=== PATIENT | male | born 1955 | race Caucasian/White ===

== ENCOUNTER 2019-04-01 08:45 | Emergency (ER) | payer SELFPAY ==
[2019-04-01 09:22] LABS: ABSOLUTE LYMPHOCYTES (AUTO) 0.8 10^3/uL (0.5-4.7); ABSOLUTE NEUT (AUTO) 11.6 10^3/uL (1.7-8.2); BASOPHILS % (AUTO) 0.3 % (0-2); EOSINOPHILS % (AUTO) 0.1 % (0-6); HEMATOCRIT 50.7 % (37.9-51.0); HEMOGLOBIN 16.5 g/dL (13.5-17.0); LYMPHOCYTES % (AUTO) 6.2 % (13-45); MEAN CORPUSCULAR HEMOGLOBIN 29.1 pg (27.0-33.4); MEAN CORPUSCULAR HGB CONC 32.6 g/dL (32.0-36.0); MEAN CORPUSCULAR VOLUME 89 fl (80-97); MONOCYTES % (AUTO) 7.5 % (3-13); PLATELET COUNT 227 10^3/uL (150-450); RED BLOOD COUNT 5.67 10^6/uL (4.35-5.55); SEGMENTED NEUTROPHILS % (AUTO) 85.9 % (42-78); TOTAL CELLS COUNTED % (AUTO) 100 %; WHITE BLOOD COUNT 13.5 10^3/uL (4.0-10.5)
[2019-04-01 09:30] LABS: INTERNATIONAL RATION (INR) 1.24; PROTHROMBIN TIME 15.7 SEC (11.4-15.4)
[2019-04-01 09:38] LABS: VENOUS BLOOD BASE EXCESS 2.9 mmol/L; VENOUS BLOOD PCO2 39.8 mmHg (35-63); VENOUS BLOOD PH 7.45 (7.30-7.42)
[2019-04-01 09:46] LABS: ALANINE AMINOTRANSFERASE 39 U/L (21-72); ALBUMIN 4.6 g/dL (3.5-5.0); ALKALINE PHOSPHATASE 122 U/L (38-126); ANION GAP 16 (5-19); ASPARTATE AMINO TRANSFERASE 48 U/L (17-59); BILIRUBIN,DIRECT 0.5 mg/dL (0.0-0.4); BILIRUBIN,TOTAL 2.2 mg/dL (0.2-1.3); BLOOD UREA NITROGEN 36 mg/dL (7-20); CALCIUM 9.7 mg/dL (8.4-10.2); CARBON DIOXIDE 28 mmol/L (22-30); CHLORIDE 98 mmol/L (98-107); GLUCOSE 208 mg/dL (75-110); LIPASE 111.1 U/L (23-300); POTASSIUM 3.7 mmol/L (3.6-5.0); SODIUM 142.1 mmol/L (137-145); TOTAL PROTEIN 8.2 g/dL (6.3-8.2)
[2019-04-01] MEDS ORDERED: NORMAL SALINE 1000 ML 1,000 ML IV ONE (09:48)
--- NOTE | 2019-04-01 10:28 | ER Document Report ---
ED General - General Chief Complaint: Breathing Difficulty Stated Complaint: RIGHT FLANK PAIN Time Seen by Provider: 04/01/19 09:46 Notes: Patient brought in by EMS because he has pain in his left lower anterolateral ribs. He says he "passed out" for a few seconds and fell about 6 days ago in the parking lot at a local store. He believes he itt his left lower ribs on the concrete surface. He was able to get up and ride his scooter home. He is an insulin-dependent diabetic and thought his blood sugar may have been low so he ate a piece of candy. However, he is continued to have pain in that region of the ribs. He had a second fall in his house 3 days ago as he attempted to get up from a chair to go to the bathroom. He did not lose consciousness on this occasion, 3 days ago. Patient says he is vomited a couple times during the 6 days, the last time he vomited the Saturday. Patient normally ambulates in his house without any walker or assistance. He lives alone. He rides a scooter to the store and back. TRAVEL OUTSIDE OF THE [place] IN LAST 30 DAYS: No - Related Data Allergies/Adverse Reactions: No Known Allergies Allergy (Unverified 04/01/19 10:52) Past Medical History - Social History Smoking Status: Unknown if Ever Smoked Family History: Reviewed & Not Pertinent - Past Medical History Cardiac Medical History: Reports: Hx Atrial Fibrillation - told he had irregular hearteat, ?Afib? --on Plavix Endocrine Medical History: Reports: Hx Diabetes Mellitus Type 1 Past Surgical History: Reports: Hx Orthopedic Surgery - left ankle Fx; amputation left big toe Review of Systems - Review of Systems Constitutional: denies: Fever EENT: No symptoms reported Respiratory: No symptoms reported. denies: Short of breath Gastrointestinal: Abdominal pain - right flank pain, Vomiting - two times. denies: Diarrhea, Constipation Musculoskeletal: No symptoms reported Skin: No symptoms reported -: Yes All other systems reviewed and negative Physical Exam - Vital signs Vitals: Temp 98.5 F 04/01/19 08:50 Interpretation: Tachycardic, Hypoxic - Upper 80s on room air.. No: Hypotensive Notes: PHYSICAL EXAMINATION: GENERAL: Well-appearing, in no acute distress. HEAD: Atraumatic, normocephalic. EYES: Pupils equal round and reactive to light, extraocular movements intact. ENT: oropharynx clear without exudates. Moist mucous membranes. NECK: Normal range of motion, supple. LUNGS: Breath sounds clear and equal bilaterally. Patient's lower left anterior ribs are extremely tender to touch and press. No subcutaneous air felt. HEART: Irregularly irregular rate and rhythm without murmurs. ABDOMEN: Soft, nontender. No guarding or rebound. No masses. BACK: No tenderness throughout entire back. EXTREMITIES: Normal range of motion without pain. Scars from old surgery of the left ankle where patient had trauma. Left great toe surgically absent. Second toe on that foot is somewhat swollen and pink and could be a source of infection. NEUROLOGICAL: Normal speech, gait not attempted. Normal sensory, motor, and reflex exams. Awake, alert, and oriented x3. Cranial nerves normal. PSYCH: Normal mood, normal affect. SKIN: Warm, dry, no rashes. Course - Re-evaluation Re-evalutation: 04/01/19 14:12 Have spoken to [facility] and they have accepted the patient, is the accepting doctor. However, they may not have beds available for at least 24 hours. I will call other facilities to see if they have any more likely bed assignment sooner. Patient's heart rate is crept up somewhat and now is in the low 100s. I would recommend another half a dose of Lopressor IV 2.5 mg. Patient's lactate level was elevated initially at 2.5, but repeat just a short time ago it was only 1.4. I repeated his troponin as well. No results yet. 04/01/19 18:04 I made calls to [facility] to see if they may have bed availability. They took the patient's name and a couple hours later called and said they do have a bed for him. During the patient's time here in the emergency department, I did send him for CT scan of the chest without contrast and CT scan of the abdomen and pelvis without contrast. Results showed fractures of the fourth, fifth, sixth and seventh ribs with some consolidation in the left lower lung which was read as a pulmonary contusion. I called back to the transfer center and made them aware of this new finding, although I do not think it will change anything as far as his being able to be transferred. The injury causing these findings happened 6 days ago. He is being covered with antibiotics IV Rocephin here in the department. 04/01/19 18:08 Recent second troponin came back at almost the same value was the first troponin . 04/01/19 18:16 Just received word that there is a bed available at [facility]. Patient lives in the [facility] and his preference is to be admitted to that [facility] for that reason, if at all possible. Decision has been made to cancel the transfer to [facility] which may not get here until midnight or later and transfer the patient to [facility], closer to the patient's home, and to have a bed available at this time. - Vital Signs Vital signs: Temp Pulse Resp BP Pulse Ox 98 F 20 120/91 H 95 04/01/19 20:09 04/01/19 20:11 04/01/19 20:11 04/01/19 20:09 - Laboratory Result Diagrams: 04/01/19 19:55 04/01/19 09:08 Laboratory results interpreted by me: 04/01/19 04/01/19 04/01/19 08:53 09:08 09:08 WBC 13.5 H RBC 5.67 H RDW 16.0 H Seg Neutrophils % 85.9 H Lymphocytes % 6.2 L Absolute Neutrophils 11.6 H PT APTT VBG pH BUN 36 H Est GFR (Non-Af Amer) 59 L Glucose 208 H POC Glucose 191 H Lactic Acid Total Bilirubin 2.2 H Direct Bilirubin 0.5 H NT-Pro-B Natriuret Pep Urine Protein Urine Glucose (UA) Urine Ketones Urine Urobilinogen 04/01/19 04/01/19 04/01/19 09:08 09:08 09:08 WBC RBC RDW Seg Neutrophils % Lymphocytes % Absolute Neutrophils PT 15.7 H APTT VBG pH BUN Est GFR (Non-Af Amer) Glucose POC Glucose Lactic Acid 2.5 H Total Bilirubin Direct Bilirubin NT-Pro-B Natriuret Pep 3950 H Urine Protein Urine Glucose (UA) Urine Ketones Urine Urobilinogen 04/01/19 04/01/19 04/01/19 09:16 11:00 19:55 WBC 10.8 H RBC RDW 16.0 H Seg Neutrophils % Lymphocytes % 11.2 L Absolute Neutrophils 8.4 H PT APTT VBG pH 7.45 H BUN Est GFR (Non-Af Amer) Glucose POC Glucose Lactic Acid Total Bilirubin Direct Bilirubin NT-Pro-B Natriuret Pep Urine Protein >=500 H Urine Glucose (UA) 150 H Urine Ketones TRACE H Urine Urobilinogen 2.0 H 04/01/19 19:55 WBC RBC RDW Seg Neutrophils % Lymphocytes % Absolute Neutrophils PT 15.5 H APTT 67.1 H VBG pH BUN Est GFR (Non-Af Amer) Glucose POC Glucose Lactic Acid Total Bilirubin Direct Bilirubin NT-Pro-B Natriuret Pep Urine Protein Urine Glucose (UA) Urine Ketones Urine Urobilinogen Critical Care Note - Critical Care Note Total time excluding time spent on procedures (mins): 40 Discharge - Discharge Clinical Impression: Atrial fibrillation with rapid ventricular response, Positive Troponin, Fracture, ribs Condition: Stable Disposition: [facility]
[2019-04-01] MEDS ORDERED: METOPROLOL TARTRATE PF/INJ 5 MG/5 ML SDV IV ONE ×2 (10:29→14:11)
--- NOTE | 2019-04-01 10:32 | EKG REPORT ---
SEVERITY:- ABNORMAL ECG - ATRIAL FIBRILLATION, V-RATE 75-149 LEFT AXIS DEVIATION REPOL ABNRM SUGGESTS ISCHEMIA, DIFFUSE LEADS RIGHT BUNDLE BRANCH BLOCK : Confirmed by: Lacie Ball MD 01-Apr-2019 10:32:10
--- NOTE | 2019-04-01 10:42 | RADIOLOGY REPORT (SQ) ---
EXAM DESCRIPTION: CHEST SINGLE VIEW COMPLETED DATE/TIME: 04/01/2019 10:25 am REASON FOR STUDY: Left lower rib pain after falling 6 days ago COMPARISON: None. EXAM PARAMETERS: NUMBER OF VIEWS: One view. TECHNIQUE: Single frontal radiographic view of the chest acquired. RADIATION DOSE: NA LIMITATIONS: None. FINDINGS: LUNGS AND PLEURA: Low lung volumes with ill-defined retrocardiac opacity. No large effusi on. No pneumothorax. MEDIASTINUM AND HILAR STRUCTURES: No masses. Contour normal. HEART AND VASCULAR STRUCTURES: Enlarged cardiac silhouette. BONES: No displaced fracture. HARDWARE: None in the chest. OTHER: No other significant finding. IMPRESSION: Low lung volumes with ill-defined left retrocardiac opacity possibly atelectasis, contus ion or infection. No displaced fracture. No pneumothorax TECHNICAL DOCUMENTATION: JOB ID: [id number] [employer]- All Rights Reserved Reading location - IP/workstation name: [email or web address]
[2019-04-01 10:45] LABS: FREE T4 (FREE THYROXINE) 1.89 ng/dL (0.78-2.19)
[2019-04-01 10:59] LABS: THYROID STIMULATING HORMONE 1.19 uIU/mL (0.47-4.68)
[2019-04-01 11:16] LABS: APPEARANCE,URINE SLIGHTLY-CLOUDY; BILIRUBIN,URINE NEGATIVE (NEGATIVE); COLOR,URINE AMBER; GLUCOSE, URINE 150 mg/dL (NEGATIVE); KETONES,URINE TRACE mg/dL (NEGATIVE); LEUKOCYTE ESTERASE,URINE NEGATIVE (NEGATIVE); NITRITE,URINE NEGATIVE (NEGATIVE); PROTEIN,URINE >=500 mg/dL (NEGATIVE); URINE SPECIFIC GRAVITY 1.027
[2019-04-01] MEDS ORDERED: CEFTRIAXONE 1 GM/D5W RTU 1 GM/50 ML RTUPB IV ONE (11:58)
[2019-04-01] MEDS ORDERED: HEPARIN SOD (PORCINE) 1,000 UNIT/ML 10 ML VIAL IV ONE (15:54)
[2019-04-01] MEDS ORDERED: HEPARIN SODIUM,PORCINE/D5W 25,000 UNIT/250 ML RTUINJ IV PRN (16:02)
--- NOTE | 2019-04-01 16:28 | RADIOLOGY REPORT (SQ) ---
EXAM DESCRIPTION: CT CHEST WITHOUT COMPLETED DATE/TIME: 04/01/2019 4:08 pm REASON FOR STUDY: Pain lower left ribs after fall last week COMPARISON: None. TECHNIQUE: CT scan performed of the chest without intravenous contrast. Images reviewed with lung, soft tissue and bone windows. Reconstructed coronal and sagittal MPR images reviewed. All images st ored on PACS. All CT scanners at this facility use dose modulation, iterative reconstruction, and/or weight based d osing when appropriate to reduce radiation dose to as low as reasonably achievable (ALARA). [facility]: Dose Right [facility]: CareDose [facility]: Dose Right [facility]: Teradose 4D [facility]: [employer] RADIATION DOSE: mGy. LIMITATIONS: No technical limitations. FINDINGS: LUNGS AND PLEURA: Subsegmental consolidation in the left lower lobe. Trace left pleural f luid. HILAR AND MEDIASTINAL STRUCTURES: No identified masses or abnormal nodes. No obvious aneurysm. HEART AND VASCULAR STRUCTURES: No aneurysm. No pericardial effusion. UPPER ABDOMEN: No significant findings. Limited exam. THYROID AND OTHER SOFT TISSUES: No masses. No adenopathy. BONES: Fractures of the left 4th through 7th anterolateral ribs. HARDWARE: None in the chest. OTHER: No other significant findings. IMPRESSION: Recent rib fractures. Pulmonary contusion left lower lobe. TECHNICAL DOCUMENTATION: JOB ID: [id number] Quality ID # [id number]: Final reports with documentation of one or more dose reduction techniques (e.g., Au tomated exposure control, adjustment of the mA and/or kV according to patient size, use of iterative reconstruction technique) 2010 [employer]- All Rights Reserved Reading location - IP/workstation name: [email or web address]
--- NOTE | 2019-04-01 16:31 | RADIOLOGY REPORT (SQ) ---
EXAM DESCRIPTION: CT ABD/PELVIS NO ORAL OR IV COMPLETED DATE/TIME: 04/01/2019 4:08 pm REASON FOR STUDY: History of fall with pain left upper quadrant COMPARISON: None. TECHNIQUE: CT scan of the abdomen and pelvis performed without intravenous or oral contrast. Images reviewed with lung, soft tissue, and bone windows. Reconstructed coronal and sagittal MPR images revi ewed. All images stored on PACS. All CT scanners at this facility use dose modulation, iterative reconstruction, and/or weight based d osing when appropriate to reduce radiation dose to as low as reasonably achievable (ALARA). [facility]: Dose Right [facility]: CareDose [facility]: Dose Right [facility]: Teradose 4D [facility]: [employer] RADIATION DOSE: CT Rad equipment meets quality standard of care and radiation dose reduction techniq ues were employed. CTDIvol: 19.9 mGy. DLP: 1468 mGy-cm.mGy. LIMITATIONS: None. FINDINGS: LOWER CHEST: See separate report of the CT of the chest. NON-CONTRASTED LIVER, SPLEEN, ADRENALS: 2 cm right adrenal nodule measuring 18 HU. PANCREAS: Occasional calcifications consistent with prior pancreatitis. GALLBLADDER: No identified stones by CT criteria. No inflammatory changes to suggest cholecystitis. RIGHT KIDNEY AND URETER: No suspicious masses. Assessment limited by lack of IV contrast. No signif icant calcifications. No hydronephrosis or hydroureter. LEFT KIDNEY AND URETER: No suspicious masses. Assessment limited by lack of IV contrast. No signifi cant calcifications. No hydronephrosis or hydroureter. AORTA AND RETROPERITONEUM: No aneurysm. No retroperitoneal masses or adenopathy. BOWEL AND PERITONEAL CAVITY: No obvious masses or inflammatory changes. No free fluid. APPENDIX: Normal. PELVIS, BLADDER, AND ABDOMINAL WALL:Fat containing anterior abdominal wall hernia. BONES: Nothing acute. OTHER: No other significant finding. IMPRESSION: No acute findings in the abdomen. Incidental right adrenal nodule. COMMENT: Quality ID # 436: Final reports with documentation of one or more dose reduction techniques (e.g., Automated exposure control, adjustment of the mA and/or kV according to patient size, use of iterative reconstruction technique) TECHNICAL DOCUMENTATION: JOB ID: [id number] [employer]- All Rights Reserved Reading location - IP/workstation name: [email or web address]
[2019-04-01] MEDS ORDERED: DILTIAZEM HCL/D5W 125 MG/125 ML RTUINJ IV PRN (19:36)
[2019-04-01] MEDS ORDERED: DILTIAZEM HCL INJ 25 MG/5 ML VIAL IV ONE (19:36)
[2019-04-01 20:05] LABS: ABSOLUTE BASOPHILS # (AUTO) 0.1 10^3/uL (0.0-0.2); ABSOLUTE EOSINOPHILS # (AUTO) 0.1 10^3/uL (0.0-0.6); ABSOLUTE LYMPHOCYTES (AUTO) 1.2 10^3/uL (0.5-4.7); ABSOLUTE MONOCYTES (AUTO) 1.1 10^3/uL (0.1-1.4); ABSOLUTE NEUT (AUTO) 8.4 10^3/uL (1.7-8.2); BASOPHILS % (AUTO) 0.5 % (0-2); EOSINOPHILS % (AUTO) 1.1 % (0-6); HEMATOCRIT 45.9 % (37.9-51.0); HEMOGLOBIN 15.4 g/dL (13.5-17.0); LYMPHOCYTES % (AUTO) 11.2 % (13-45); MEAN CORPUSCULAR HEMOGLOBIN 29.8 pg (27.0-33.4); MEAN CORPUSCULAR HGB CONC 33.5 g/dL (32.0-36.0); MEAN CORPUSCULAR VOLUME 89 fl (80-97); MONOCYTES % (AUTO) 9.8 % (3-13); PLATELET COUNT 199 10^3/uL (150-450); RED BLOOD COUNT 5.16 10^6/uL (4.35-5.55); SEGMENTED NEUTROPHILS % (AUTO) 77.4 % (42-78); TOTAL CELLS COUNTED % (AUTO) 100 %; WHITE BLOOD COUNT 10.8 10^3/uL (4.0-10.5)
[2019-04-01 20:13] LABS: INTERNATIONAL RATION (INR) 1.23; PROTHROMBIN TIME 15.5 SEC (11.4-15.4)
[2019-04-01 20:15] LABS: PARTIAL THROMBOPLASTIN TIME 67.1 SEC (23.5-35.8)
[2019-04-01 20:27] VITALS: BP 120/91
--- NOTE | 2019-04-01 21:54 | ER Document Report ---
Doctor's Note Notes: 04/01/19 21:53 Violent was at the bedside at 2014. Patient's tachycardia had slowed down to about a 10 2-1 05 rate. The Cardizem had not yet been given. Transport team elected to take the Cardizem with them but not start it until they consulted with the accepting physician. The patient was stable for transport at that time.
== END 2019-04-01 20:15 | disposition short-term general hospital (02) ==
LOC: ER 08:45
DX: S22.42XA Multiple fractures of ribs, left side, initial encounter for closed fracture (principal); R10.9 Unspecified abdominal pain; R07.81 Pleurodynia; R79.89 Other specified abnormal findings of blood chemistry; W18.30XA Fall on same level, unspecified, initial encounter; Y92.481 Parking lot as the place of occurrence of the external cause; I48.91 Unspecified atrial fibrillation
CPT/HCPCS: 93005; 96376; 99285; 96361; 96375; 96365; 96366; 96367; 36415; 87040; 87086; 84439; 82962; 83690; 84443; 85025; 85610; 85730; 87077; 80053; 81001; 84484; 87186; 82803; 83605; 83880; 71045; 71250; 74176; 93010; J1644 ×2; J3490 ×3; J7030; J0696

== ENCOUNTER → 2019-07-02 | Outpatient (CLI) | payer OTHER ==
[2019-07-02 10:40] LABS: ABSOLUTE EOSINOPHILS # (AUTO) 0.1 10^3/uL (0.0-0.6); ABSOLUTE LYMPHOCYTES (AUTO) 0.8 10^3/uL (0.5-4.7); ABSOLUTE MONOCYTES (AUTO) 0.7 10^3/uL (0.1-1.4); BASOPHILS % (AUTO) 0.5 % (0-2); HEMATOCRIT 41.8 % (37.9-51.0); HEMOGLOBIN 14.1 g/dL (13.5-17.0); LYMPHOCYTES % (AUTO) 9.2 % (13-45); MEAN CORPUSCULAR HEMOGLOBIN 30.7 pg (27.0-33.4); MEAN CORPUSCULAR HGB CONC 33.8 g/dL (32.0-36.0); MEAN CORPUSCULAR VOLUME 91 fl (80-97); MONOCYTES % (AUTO) 8.1 % (3-13); PLATELET COUNT 347 10^3/uL (150-450); RED BLOOD COUNT 4.59 10^6/uL (4.35-5.55); RED CELL DISTRIBUTION WIDTH 14.9 % (11.5-14.0); SEGMENTED NEUTROPHILS % (AUTO) 81.2 % (42-78); TOTAL CELLS COUNTED % (AUTO) 100 %; WHITE BLOOD COUNT 8.6 10^3/uL (4.0-10.5)
[2019-07-02 11:12] LABS: ALBUMIN 4.2 g/dL (3.5-5.0); ALKALINE PHOSPHATASE 119 U/L (38-126); ANION GAP 10 (5-19); ASPARTATE AMINO TRANSFERASE 26 U/L (17-59); BILIRUBIN,DIRECT 0.2 mg/dL (0.0-0.4); BILIRUBIN,TOTAL 1.5 mg/dL (0.2-1.3); BLOOD UREA NITROGEN 18 mg/dL (7-20); C-REACTIVE PROTEIN 8.2 mg/L (<10.0); CALCIUM 9.3 mg/dL (8.4-10.2); CARBON DIOXIDE 33 mmol/L (22-30); CHLORIDE 98 mmol/L (98-107); GLUCOSE 182 mg/dL (75-110); POTASSIUM 3.8 mmol/L (3.6-5.0); TOTAL PROTEIN 7.9 g/dL (6.3-8.2)
[2019-07-02 11:22] LABS: ERYTHROCYTE SEDIMENTATION RATE 43 mm/hr (0-20)
== END ==
LOC: LAB 09:56
PROVIDERS: ATTEND Preventive Medicine Undersea and Hyperbaric Medicine
DX: E11.621 Type 2 diabetes mellitus with foot ulcer (principal); L97.512 Non-pressure chronic ulcer of other part of right foot with fat layer exposed; L97.522 Non-pressure chronic ulcer of other part of left foot with fat layer exposed
CPT/HCPCS: 36415; 80053; 83036; 85025; 85652; 86140

== ENCOUNTER → 2019-07-15 | Outpatient (CLI) | payer OTHER ==
--- NOTE | 2019-07-16 08:52 | XCELERA REPORT ---
[address] [address] Lower Extremity Arterial Evaluation Name: CATHERINE LEROY Age: 64 yrs Gender: Male : 1955 Patient Status: Outpatient Patient Location: Study Date: 07/15/2019 11:01 AM Procedure: A color flow and duplex scan of the lower extremity arteries was performed bilaterally with velocity and waveform anaylsis. Ankle brachial indicies performed. Reason For Study: ULCER OF RIGHT FOOT Ordering Physician: ROSLYN STARKS Performed By: Loretta Cooper Measurements and Calculations Right Left CUTTER INSPECTOR PSV 104.8 98.7 cm/sec Prox PFA PSV -95.9 -57.0 cm/sec Prox SFA PSV 73.7 39.6 cm/sec Mid SFA PSV -134.8 -59.4 cm/sec Dist SFA PSV -62.0 -40.2 cm/sec Prox Pop A PSV 55.0 36.0 cm/sec Dist Pop A PSV -143.9 cm/sec Dist KIRIT PSV 13.8 13.2 cm/sec Dist GOVERNMENT RELATIONS MANAGER PSV 22.3 23.6 cm/sec Dist Jennifer A 23.6 cm/sec PSV David Pedis PSV 14.3 14.1 cm/sec Right Side Arterial Evaluation Normal velocity and biphasic waveforms, moderate spectral broadening, noted from the Common Femoral artery to the Femoral artery . Monophasic with low velocity, spectral broadening , from the Popliteal to infrageniculate arteries. Almost trickle flow in the Anterior and Posterior tibial arteries. Additionally, stenosis in the Popliteal is seen on aguayo scale and wall calcification in the infrageniculate vessels. Ankle Brachial index 0.64. Left Side Arterial Evaluation Normal velocity and biphasic waveforms, moderate spectral broadening, noted from the Common Femoral artery to the proximal Femoral artery . Monophasic with low velocity, spectral broadening , from the Popliteal to infrageniculate arteries. Almost trickle flow in the Anterior and Posterior tibial arteries. Wall calcification in the infrageniculate vessels. Ankle Brachial index 0.78. Interpretation Summary Severe hemodynamically significant lesions in the bilateral lower extremities, on duplex imaging, at rest. Duplex findings show complex, sequential disease,inflow as well as Femero Popliteal. Calcification in vessels granger. Focal stenosis in night Popliteal. Findings are compatible with threat of tissue loss. DEBBIE's indicate moderate obstruction, this is discordant with the duplex findings. : ROSLYN STARKS > Justen Camilo
== END ==
LOC: SP 10:11
PROVIDERS: ATTEND Preventive Medicine Undersea and Hyperbaric Medicine
DX: L97.512 Non-pressure chronic ulcer of other part of right foot with fat layer exposed (principal); L97.522 Non-pressure chronic ulcer of other part of left foot with fat layer exposed
CPT/HCPCS: 93922; 93925

== ENCOUNTER → 2019-07-30 | Outpatient (CLI) | payer OTHER ==
--- NOTE | 2019-07-30 12:20 | RADIOLOGY REPORT (SQ) ---
EXAM DESCRIPTION: FOOT RIGHT COMPLETE COMPLETED DATE/TIME: 07/30/2019 12:00 pm REASON FOR STUDY: NON-PRS CHRONIC ULCER OTH PRT RIGHT FOOT W FAT LAYER EXPOSED L97.512 NON-PRS BALLISTICS TESTER JANESSA ULCER OTH PRT RIGHT FOOT W FAT LAYER L97.522 NON-PRS CHRONIC ULCER OTH PRT LEFT FOOT W FAT LAYER COMPARISON: None. NUMBER OF VIEWS: Three views. TECHNIQUE: AP, lateral and oblique radiographic images acquired of the right foot. LIMITATIONS: None. FINDINGS: MINERALIZATION: Normal. BONES: There is resection of a portion of the 1st proximal phalanx. The proximal margins are slightl y irregular. JOINTS: No effusions. SOFT TISSUES: No soft tissue swelling. No foreign body. OTHER: No other significant finding. IMPRESSION: Cannot exclude osteomyelitis in the proximal aspect of the 1st proximal phalanx. TECHNICAL DOCUMENTATION: JOB ID: [id number] [employer] All Rights Reserved Reading location - IP/workstation name: [email or web address]
--- NOTE | 2019-07-30 12:22 | RADIOLOGY REPORT (SQ) ---
EXAM DESCRIPTION: FOOT LEFT COMPLETE COMPLETED DATE/TIME: 07/30/2019 12:00 pm REASON FOR STUDY: NON-PRS CHRONIC ULCER OTH PRT LEFT FOOT W FAT LAYER EXPOSED L97.512 NON-PRS CHRON IC ULCER OTH PRT RIGHT FOOT W FAT LAYER L97.522 NON-PRS CHRONIC ULCER OTH PRT LEFT FOOT W FAT LAYER COMPARISON: None. NUMBER OF VIEWS: Three views. TECHNIQUE: AP, lateral and oblique radiographic images acquired of the left foot. LIMITATIONS: None. FINDINGS: MINERALIZATION: Normal. BONES: Transverse fracture of the 5th metatarsal and oblique fracture of the distal 4th metatarsal. Resection of the 1st digit from the mid 1st metatarsal. Resection of the 2nd digit from the proximal 2nd proximal phalanx. No evidence of osteomyelitis. JOINTS: No effusions. SOFT TISSUES: No soft tissue swelling. No foreign body. OTHER: No other significant finding. IMPRESSION: Surgical changes. Fractures of the 4th and 5th metatarsals. The 5th metatarsal fractur e has the appearance of a stress fracture. TECHNICAL DOCUMENTATION: JOB ID: [id number] [employer]- All Rights Reserved Reading location - IP/workstation name: [email or web address]
== END ==
LOC: WC 11:34
PROVIDERS: ATTEND Preventive Medicine Undersea and Hyperbaric Medicine
DX: M84.375A Stress fracture, left foot, initial encounter for fracture (principal); X58.XXXA Exposure to other specified factors, initial encounter; L97.512 Non-pressure chronic ulcer of other part of right foot with fat layer exposed; L97.522 Non-pressure chronic ulcer of other part of left foot with fat layer exposed

== ENCOUNTER → 2019-09-03 | Outpatient (CLI) | payer OTHER ==
[2019-09-03 11:50] LABS: ABSOLUTE EOSINOPHILS # (AUTO) 0.1 10^3/uL (0.0-0.6); ABSOLUTE LYMPHOCYTES (AUTO) 0.7 10^3/uL (0.5-4.7); ABSOLUTE MONOCYTES (AUTO) 0.6 10^3/uL (0.1-1.4); ABSOLUTE NEUT (AUTO) 4.8 10^3/uL (1.7-8.2); BASOPHILS % (AUTO) 0.6 % (0-2); EOSINOPHILS % (AUTO) 1.4 % (0-6); HEMOGLOBIN 15.2 g/dL (13.5-17.0); LYMPHOCYTES % (AUTO) 11.5 % (13-45); MEAN CORPUSCULAR HEMOGLOBIN 30.2 pg (27.0-33.4); MEAN CORPUSCULAR HGB CONC 33.1 g/dL (32.0-36.0); MEAN CORPUSCULAR VOLUME 91 fl (80-97); MONOCYTES % (AUTO) 9.1 % (3-13); PLATELET COUNT 230 10^3/uL (150-450); RED BLOOD COUNT 5.04 10^6/uL (4.35-5.55); RED CELL DISTRIBUTION WIDTH 15.1 % (11.5-14.0); SEGMENTED NEUTROPHILS % (AUTO) 77.4 % (42-78); TOTAL CELLS COUNTED % (AUTO) 100 %; WHITE BLOOD COUNT 6.2 10^3/uL (4.0-10.5)
[2019-09-03 12:18] LABS: ALBUMIN 4.5 g/dL (3.5-5.0); ALKALINE PHOSPHATASE 104 U/L (38-126); ANION GAP 12 (5-19); ASPARTATE AMINO TRANSFERASE 29 U/L (17-59); BILIRUBIN,DIRECT 0.3 mg/dL (0.0-0.4); BILIRUBIN,TOTAL 1.5 mg/dL (0.2-1.3); BLOOD UREA NITROGEN 21 mg/dL (7-20); C-REACTIVE PROTEIN < 5.0 mg/L (<10.0); CALCIUM 9.6 mg/dL (8.4-10.2); CARBON DIOXIDE 34 mmol/L (22-30); CHLORIDE 99 mmol/L (98-107); TOTAL PROTEIN 7.8 g/dL (6.3-8.2)
[2019-09-03 12:34] LABS: ERYTHROCYTE SEDIMENTATION RATE 15 mm/hr (0-20)
[2019-09-03 12:42] LABS: GLUCOSE 561 mg/dL (75-110)
--- NOTE | 2019-09-03 15:29 | RADIOLOGY REPORT (SQ) ---
EXAM DESCRIPTION: FOOT BILATERAL 3 VIEWS COMPLETED DATE/TIME: 09/03/2019 12:03 pm REASON FOR STUDY: NON-PRESSURE CHRONIC ULCER L97.522 NON-PRS CHRONIC ULCER OTH PRT LEFT FOOT W FAT LAYER L97.514 NON-PRS CHRONIC ULCER OTH PRT RIGHT FOOT W NECROSIS E11.621 TYPE 2 DIABETES MELLITU S WITH FOOT ULCER COMPARISON: 07/30/2019. NUMBER OF VIEWS: Three views. TECHNIQUE: AP, lateral and oblique without weight bearing radiographic images acquired of the right and left foot. LIMITATIONS: None. FINDINGS: RIGHT FOOT: MINERALIZATION: Normal. BONES: Stable surgical changes in the proximal phalanx of the 1st toe. Other bony structures are inta ct. Prominent heel spur. JOINTS: No erosions. No anna-articular osteopenia. No chondrocalcinosis. SOFT TISSUES: No swelling. No calcifications. OTHER: No other significant finding. LEFT FOOT: MINERALIZATION: Normal. BONES: Stable surgical resection of the 1st metatarsal and proximal phalanx of the 2nd toe. Stable p revious fractures. Otherwise intact. Prominent heel spur. JOINTS: No erosions. No anna-articular osteopenia. No chondrocalcinosis. SOFT TISSUES: No swelling. No calcifications. OTHER: No other significant finding. IMPRESSION: OVERALL STABLE APPEARANCE OF BOTH FEET. TECHNICAL DOCUMENTATION: JOB ID: [id number] [employer]- All Rights Reserved Reading location - IP/workstation name: [email or web address]
== END ==
LOC: WC 11:18
PROVIDERS: ATTEND Preventive Medicine Undersea and Hyperbaric Medicine
DX: L97.522 Non-pressure chronic ulcer of other part of left foot with fat layer exposed (principal); L97.514 Non-pressure chronic ulcer of other part of right foot with necrosis of bone; E11.621 Type 2 diabetes mellitus with foot ulcer
CPT/HCPCS: 36415; 80053; 85025; 85652; 86140

== ENCOUNTER 2019-09-24 13:42 | Emergency (ER) | payer OTHER ==
--- NOTE | 2019-09-24 14:30 | ER Document Report ---
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 Home health nurse noticed it and sent him over here. Unable to palpate pulse manually. Exam: Dusky appearing right foot of the third fourth and fifth digits, great toe is wrapped up in a bandage, unable to palpate DP or PT pulses I have greeted and performed a rapid initial assessment of this patient. A comprehensive ED assessment and evaluation of the patient, analysis of test results and completion of medical decision making process will be conducted by an additional ED providers. TRAVEL OUTSIDE OF THE [place] IN LAST 30 DAYS: No - Related Data Allergies/Adverse Reactions: No Known Allergies Allergy (Verified 09/24/19 14:24) Past Medical History - Social History Chew tobacco use (# tins/day): No Frequency of alcohol use: None - Past Medical History Cardiac Medical History: Reports: Hx Atrial Fibrillation - told he had irregular hearteat, ?Afib? --on Plavix, Hx Congestive Heart Failure, Hx Hypercholesterolemia, Hx Hypertension Endocrine Medical History: Reports: Hx Diabetes Mellitus Type 1 Renal/ Medical History: Denies: Hx Peritoneal Dialysis Past Surgical History: Reports: Hx Orthopedic Surgery - left ankle Fx; amputation left big toe Physical Exam - Vital signs Vitals: Temp Pulse Resp BP Pulse Ox 98.0 F 82 20 131/85 H 98 09/24/19 13:54 09/24/19 13:54 09/24/19 13:54 09/24/19 13:54 09/24/19 13:54 Course - Vital Signs Vital signs: Temp Pulse Resp BP Pulse Ox 98.0 F 82 20 131/85 H 98 09/24/19 13:54 09/24/19 13:54 09/24/19 13:54 09/24/19 13:54 09/24/19 13:54 Doctor's Discharge - Discharge Referrals: ROSLYN STARKS DPM [Primary Care Provider] - Follow up as needed
--- NOTE | 2019-09-24 15:47 | RADIOLOGY REPORT (SQ) ---
EXAM DESCRIPTION: FOOT RIGHT COMPLETE COMPLETED DATE/TIME: 09/24/2019 3:35 pm REASON FOR STUDY: diabetic foot ulcer cold foot COMPARISON: 07/30/2019 NUMBER OF VIEWS: Three views. TECHNIQUE: AP, lateral and oblique radiographic images acquired of the right foot. LIMITATIONS: None. FINDINGS: MINERALIZATION: Normal. BONES: There appears to be resection of portion of the 1st proximal phalanx versus nonunited fracture with medial displacement of the distal fragment. The distal margin of the proximal aspect of the 1s t proximal phalanx continues to be slightly irregular but there is no progressive change since the ea rlier study. JOINTS: No effusions. SOFT TISSUES: No soft tissue swelling. No foreign body. OTHER: No other significant finding. IMPRESSION: Changes of the 1st proximal phalanx as described. Cannot entirely exclude osteomyelitis , but there does not appear to be significant change in the appearance of the proximal portion of the 1st proximal phalanx. TECHNICAL DOCUMENTATION: JOB ID: [id number] [employer]- All Rights Reserved Reading location - IP/workstation name: [email or web address]
[2019-09-24 17:49] LABS: ABSOLUTE BASOPHILS # (AUTO) 0.1 10^3/uL (0.0-0.2); ABSOLUTE EOSINOPHILS # (AUTO) 0.1 10^3/uL (0.0-0.6); ABSOLUTE MONOCYTES (AUTO) 0.7 10^3/uL (0.1-1.4); ABSOLUTE NEUT (AUTO) 6.9 10^3/uL (1.7-8.2); BASOPHILS % (AUTO) 0.7 % (0-2); HEMATOCRIT 49.2 % (37.9-51.0); HEMOGLOBIN 16.4 g/dL (13.5-17.0); LYMPHOCYTES % (AUTO) 11.9 % (13-45); MEAN CORPUSCULAR HEMOGLOBIN 30.1 pg (27.0-33.4); MEAN CORPUSCULAR HGB CONC 33.3 g/dL (32.0-36.0); MEAN CORPUSCULAR VOLUME 90 fl (80-97); PLATELET COUNT 292 10^3/uL (150-450); RED BLOOD COUNT 5.45 10^6/uL (4.35-5.55); RED CELL DISTRIBUTION WIDTH 14.9 % (11.5-14.0); SEGMENTED NEUTROPHILS % (AUTO) 78.4 % (42-78); TOTAL CELLS COUNTED % (AUTO) 100 %; WHITE BLOOD COUNT 8.7 10^3/uL (4.0-10.5)
--- NOTE | 2019-09-24 18:09 | VASCULAR PRELIM REPORT ---
Provider Note Provider Note: Study shows severe PAD, Normal Common Famoral, Biphasic Femoral and Monophasic, low [place]city from Popliteal down. Arterial calcification noted. Consistent with chronic severe PAD. Discussed with Siobhan Kenney in ER.
[2019-09-24 22:02] LABS: ALBUMIN 4.2 g/dL (3.5-5.0); ALKALINE PHOSPHATASE 98 U/L (38-126); ANION GAP 14 (5-19); ASPARTATE AMINO TRANSFERASE 37 U/L (17-59); BILIRUBIN,DIRECT 0.3 mg/dL (0.0-0.4); BILIRUBIN,TOTAL 1.3 mg/dL (0.2-1.3); BLOOD UREA NITROGEN 23 mg/dL (7-20); CALCIUM 9.6 mg/dL (8.4-10.2); CARBON DIOXIDE 27 mmol/L (22-30); CHLORIDE 97 mmol/L (98-107); GLUCOSE 275 mg/dL (75-110); POTASSIUM 4.3 mmol/L (3.6-5.0); TOTAL PROTEIN 7.7 g/dL (6.3-8.2)
[2019-09-24] MEDS ORDERED: SULFAMETHOXAZOLE/TRIMETHOPRIM 800-160 MG TABLET PO ONE (22:43)
[2019-09-24] MEDS ORDERED: CEPHALEXIN 500 MG CAPSULE PO ONE (22:43)
--- NOTE | 2019-09-24 22:45 | ER Document Report ---
ED General - General Chief Complaint: Wound Infection Stated Complaint: FOOT PAIN Time Seen by Provider: 09/24/19 14:23 Primary Care Provider: ROSLYN STARKS DPM [Primary Care Provider] - Follow up as needed АННА PORTILLO MD [NO LOCAL MD] - Follow up in 1 week Information source: Patient Notes: Has home health care for chronic diabetic foot wounds. Patient is also managed at the wound clinic weekly for these wounds. Patient states that the home health nurse came and was not able to feel a pulse and thought that his right foot felt cold. Patient denies any change in pain symptoms or appearance of the foot. Patient denies currently taking any antibiotics for any infection at this time. Patient does report a history of peripheral artery disease and states he has had previous vascular surgery in the past. TRAVEL OUTSIDE OF THE [place] IN LAST 30 DAYS: No - HPI Onset: This afternoon Pain Level: 1 Associated symptoms: Other - Lack of peripheral pulses. denies: Fever, Sweating, Weakness Exacerbated by: Denies Relieved by: Denies - Related Data Allergies/Adverse Reactions: No Known Allergies Allergy (Verified 09/24/19 14:24) Past Medical History - General Information source: Patient - Social History Smoking Status: Never Smoker Chew tobacco use (# tins/day): No Frequency of alcohol use: None Lives with: Alone Family History: Reviewed & Not Pertinent Patient has suicidal ideation: No Patient has homicidal ideation: No - Past Medical History Cardiac Medical History: Reports: Hx Atrial Fibrillation - told he had irregular hearteat, ?Afib? --on Plavix, Hx Congestive Heart Failure, Hx Hypercholesterolemia, Hx Hypertension, Hx Peripheral Vascular Disease Endocrine Medical History: Reports: Hx Diabetes Mellitus Type 1 Renal/ Medical History: Denies: Hx Peritoneal Dialysis Past Surgical History: Reports: Hx Orthopedic Surgery - left ankle Fx; amputation left big toe, Hx Vascular Surgery Review of Systems - Review of Systems Constitutional: No symptoms reported. denies: Fever, Recent illness EENT: No symptoms reported Cardiovascular: No symptoms reported. denies: Chest pain Respiratory: No symptoms reported. denies: Cough Gastrointestinal: No symptoms reported. denies: Vomiting Genitourinary: No symptoms reported Male Genitourinary: No symptoms reported Musculoskeletal: No symptoms reported Skin: Other - Chronic diabetic foot wounds to bilateral feet Hematologic/Lymphatic: No symptoms reported Neurological/Psychological: No symptoms reported Physical Exam - Vital signs Vitals: Temp Pulse Resp BP Pulse Ox 98.0 F 82 20 131/85 H 98 09/24/19 13:54 09/24/19 13:54 09/24/19 13:54 09/24/19 13:54 09/24/19 13:54 - General General appearance: Alert In distress: None - HEENT Head: Normocephalic, Atraumatic Eyes: Normal Nasal: Normal Mouth/Lips: Normal Mucous membranes: Normal Neck: Normal, Supple. No: Lymphadenopathy - Respiratory Respiratory status: No respiratory distress Chest status: Nontender Breath sounds: Normal. No: Rales, Rhonchi, Stridor, Wheezing Chest palpation: Normal - Cardiovascular Rhythm: Regular Heart sounds: S1 appreciated, S2 appreciated Pulses: Absent: Dorsalis pedis - Abdominal Inspection: Obese Distension: No distension Tenderness: Nontender - Back Back: Normal, Nontender - Extremities General upper extremity: Normal inspection General lower extremity: No: Normal color - Left foot mildly erythematous with 1 + edema, Normal temperature - Right foot and lower leg cooler to touch as compared to the left - Neurological Neuro grossly intact: Yes Cognition: Normal Alex Coma Scale Eye Opening: Spontaneous [place] Coma Scale Verbal: Oriented [place] Coma Scale Motor: Obeys Commands Alex Coma Scale Total: 15 - Psychological Associated symptoms: Normal affect, Normal mood - Skin Skin Temperature: Warm Skin Moisture: Dry Skin Color: Erythema - Mild erythema to left foot with 1+ edema Course - Re-evaluation Re-evalutation: 09/24/19 18:00 Dr. Camilo called patient's preliminary arterial Doppler report which shows severe PAD which appears chronic in nature. 09/24/19 22:[address] Dugan regarding patient presentation and diagnostic evaluation. Recommends adding on ESR at this time. 09/24/19 23:45 Patient with erythema to left foot and warmth worrisome for possible developing cellulitis. Patient without any elevation in ESR. No concern for acute osteomyelitis at this time. Patient without any fever or leukocytosis at this time. Patient with bilateral dorsalis pedis pulses noted on Doppler study. Patient with chronic severe PAD. Patient denies any change in presentation of his extremities or in his discomfort. Patient will be started on antibiotics to cover for cellulitis and encouraged to follow-up with his vascular surgeon for recheck. - Vital Signs Vital signs: Temp Pulse Resp BP Pulse Ox 98.2 F 86 18 147/89 H 100 09/25/19 01:28 09/25/19 01:28 09/25/19 01:28 09/25/19 01:28 09/25/19 01:28 - Laboratory Result Diagrams: 09/24/19 17:10 09/24/19 20:20 Laboratory results interpreted by me: 09/24/19 09/24/19 17:10 20:20 RDW 14.9 H Lymph % (Auto) 11.9 L Seg Neutrophils % 78.4 H Chloride 97 L BUN 23 H Glucose 275 H - Diagnostic Test Radiology reviewed: Reports reviewed Discharge - Discharge Clinical Impression: PAD (peripheral artery disease), diabetic foot wound Cellulitis Qualifiers: Site of cellulitis: extremity Site of cellulitis of extremity: lower extremity Laterality: left Qualified Code(s): L03.116 - Cellulitis of left lower limb Condition: Stable Disposition: HOME, SELF-CARE Instructions: Cellulitis ([facility]), Cephalexin ([facility]), Peripheral Vascular Disease ([facility]), Trimethoprim-Sulfa ([facility]) Additional Instructions: Return immediately for any new or worsening symptoms Followup with your primary care provider, call tomorrow to make a followup appointment Follow-up with vascular surgeon, Dr. Portillo in [place]. You may need a procedure to improve blood flow to your extremities. Prescriptions: Sulfamethoxazole/Trimethoprim [Bactrim Ds Tablet] 1 each PO BID #20 tablet Cephalexin Monohydrate [Keflex 500 mg Capsule] 500 mg PO Q6H 5 Days capsule Referrals: ROSLYN STARKS DPM [Primary Care Provider] - Follow up as needed АННА PORTILLO MD [NO LOCAL MD] - Follow up in 1 week
[2019-09-25 00:28] VITALS: BP 147/89
--- NOTE | 2019-09-25 09:07 | XCELERA REPORT ---
[address] [address] Lower Extremity Arterial Evaluation Name: RAD LOREE ALEXANDER Age: 64 yrs Gender: Male : 1955 Patient Status: Preadmit Patient Location: ER Study Date: 09/24/2019 02:52 PM Procedure: A color flow and duplex scan of the lower extremity arteries was performed on the right with velocity and waveform anaylsis. Reason For Study: cold right foot, unable to palpate pulses Ordering Physician: ROSLYN GONZALEZ Performed By: Karen Nunes Measurements and Calculations Right Left Prox PFA PSV 88.4 cm/sec Prox SFA PSV 160.0 cm/sec Mid SFA PSV 91.8 cm/sec Dist SFA PSV 89.5 cm/sec Dist Pop A PSV 58.6 cm/sec Prox KIRIT PSV 22.3 cm/sec Prox HIGH SCHO[employer] COACH PSV 24.7 cm/sec Dist HIGH SCHOOL COACH PSV 15.6 cm/sec Right Side Arterial Evaluation Arterial wall calcification noted. Normal velocity and triphasic waveforms noted in the Common Femoral artery. Biphasic with normal velocity, spectral broadening in the Femoral. Monophasic with very low velocity, spectral broadening in the Popliteal to infrageniculate vessels. Trickle, almost no flow distally. . Ankle Brachial index not done. Critical Findings Discussed with AGGIE Kenney. Interpretation Summary Severe hemodynamically significant lesions in the right lower extremity only, on duplex imaging, at rest. Duplex findings are of multi level disease, mostly in the Femoral. Very severe and compatible with tissue loss. : ROSLYN GONZALEZ > Justen Camilo
== END 2019-09-25 01:27 | disposition home or self-care (01) ==
LOC: ER 13:42
DX: L03.116 Cellulitis of left lower limb (principal); E10.51 Type 1 diabetes mellitus with diabetic peripheral angiopathy without gangrene; E10.628 Type 1 diabetes mellitus with other skin complications; I10 Essential (primary) hypertension
CPT/HCPCS: 36415; 80053; 85025; 85652; 87040; 87077; 93926; 99284

== ENCOUNTER 2019-10-15 11:07 | Inpatient (IN) | payer OTHER ==
--- NOTE | 2019-10-15 11:11 | ER Document Report ---
ED Medical Screen (RME) - General Chief Complaint: Foot Pain Stated Complaint: LEFT FOOT PAIN Time Seen by Provider: 10/15/19 11:10 Primary Care Provider: ROSLYN STARKS DPM [Primary Care Provider] - Follow up as needed Mode of Arrival: Ambulatory Information source: Patient Notes: 64-year-old male patient presenting from the wound care clinic with concerns for left foot infection. Patient has an unhealed amputation site to the left foot near the forefoot, his physician sent him with concern for osteomyelitis. Unable to fully evaluate patient in triage, patient alert, oriented, no acute distress noted. I have greeted and performed a rapid initial assessment of this patient. A comprehensive ED assessment and evaluation of the patient, analysis of test resu lts and completion of the medical decision making process will be conducted by additional ED providers. I have specifically instructed the patient or family members with the patient to immediately return to any nursing staff should anything change in the patient's condition or with their chief complaint. TRAVEL OUTSIDE OF THE [place] IN LAST 30 DAYS: No - Related Data Allergies/Adverse Reactions: No Known Allergies Allergy (Verified 09/24/19 14:24) Past Medical History - Past Medical History Cardiac Medical History: Reports: Hx Atrial Fibrillation - told he had irregular hearteat, ?Afib? --on Plavix, Hx Congestive Heart Failure, Hx Hypercholesterolemia, Hx Hypertension, Hx Peripheral Vascular Disease Endocrine Medical History: Reports: Hx Diabetes Mellitus Type 1 Renal/ Medical History: Denies: Hx Peritoneal Dialysis Past Surgical History: Reports: Hx Orthopedic Surgery - left ankle Fx; amputation left big toe, Hx Vascular Surgery Doctor's Discharge - Discharge Referrals: ROSLYN STARKS DPM [Primary Care Provider] - Follow up as needed
[2019-10-15 11:34] LABS: ABSOLUTE EOSINOPHILS # (AUTO) 0.1 10^3/uL (0.0-0.6); ABSOLUTE LYMPHOCYTES (AUTO) 1.2 10^3/uL (0.5-4.7); ABSOLUTE MONOCYTES (AUTO) 0.9 10^3/uL (0.1-1.4); ABSOLUTE NEUT (AUTO) 11.7 10^3/uL (1.7-8.2); BASOPHILS % (AUTO) 0.3 % (0-2); EOSINOPHILS % (AUTO) 0.5 % (0-6); HEMATOCRIT 45.4 % (37.9-51.0); HEMOGLOBIN 15.1 g/dL (13.5-17.0); LYMPHOCYTES % (AUTO) 8.6 % (13-45); MEAN CORPUSCULAR HEMOGLOBIN 29.7 pg (27.0-33.4); MEAN CORPUSCULAR HGB CONC 33.3 g/dL (32.0-36.0); MEAN CORPUSCULAR VOLUME 89 fl (80-97); MONOCYTES % (AUTO) 6.7 % (3-13); PLATELET COUNT 358 10^3/uL (150-450); RED BLOOD COUNT 5.08 10^6/uL (4.35-5.55); RED CELL DISTRIBUTION WIDTH 14.5 % (11.5-14.0); SEGMENTED NEUTROPHILS % (AUTO) 83.9 % (42-78); TOTAL CELLS COUNTED % (AUTO) 100 %; WHITE BLOOD COUNT 13.9 10^3/uL (4.0-10.5)
[2019-10-15 12:12] LABS: ALBUMIN 3.6 g/dL (3.5-5.0); ALKALINE PHOSPHATASE 135 U/L (38-126); ANION GAP 10 (5-19); ASPARTATE AMINO TRANSFERASE 23 U/L (17-59); BILIRUBIN,DIRECT 0.4 mg/dL (0.0-0.4); BILIRUBIN,TOTAL 0.7 mg/dL (0.2-1.3); BLOOD UREA NITROGEN 17 mg/dL (7-20); C-REACTIVE PROTEIN 40.3 mg/L (<10.0); CALCIUM 9.7 mg/dL (8.4-10.2); CARBON DIOXIDE 31 mmol/L (22-30); CHLORIDE 99 mmol/L (98-107); GLUCOSE 279 mg/dL (75-110); POTASSIUM 3.7 mmol/L (3.6-5.0); TOTAL PROTEIN 7.4 g/dL (6.3-8.2)
--- NOTE | 2019-10-15 12:20 | RADIOLOGY REPORT (SQ) ---
EXAM DESCRIPTION: FOOT BILATERAL 3 VIEWS COMPLETED DATE/TIME: 10/15/2019 11:58 am REASON FOR STUDY: infection, eval for osteo COMPARISON: 09/24/2019 and 09/03/2019. NUMBER OF VIEWS: Three views. TECHNIQUE: AP, lateral and oblique radiographic images acquired of the right and left foot. LIMITATIONS: None. FINDINGS: RIGHT FOOT: MINERALIZATION: Worsening demineralization. BONES: No acute fracture or dislocation. Stable surgical changes. Prominent plantar calcaneal spur. No worrisome bone lesions. JOINTS: No effusions. SOFT TISSUES: No soft tissue swelling. No foreign body. OTHER: No other significant finding. LEFT FOOT: MINERALIZATION: Worsening demineralization. BONES: No acute fracture or dislocation. Stable surgical changes and old fractures. Prominent plant ar calcaneal spur. The previously seen portion of the proximal phalanx of the 2nd toe is no longer p resent. No worrisome bone lesions. JOINTS: No effusions. SOFT TISSUES: Soft tissue swelling and gas in the soft tissues adjacent to the distal 2nd metatarsal. OTHER: No other significant finding. IMPRESSION: 1. WORSENING DEMINERALIZATION IN THE RIGHT FOOT. STABLE SURGICAL CHANGES AND CHRONIC FINDINGS. 2. WORSENING DEMINERALIZATION IN THE LEFT FOOT. STABLE SURGICAL CHANGES AND CHRONIC FINDINGS. THE P ROXIMAL PHALANX OF THE 2ND TOE IS NO LONGER PRESENT. NO HISTORY AVAILABLE TO WHETHER THIS IS DUE TO SURGERY. IF THIS IS NOT RELATED TO PRIOR SURGERY, THEN THIS WOULD BE INDICATIVE OF DESTRUCTION SE CONDARY TO OSTEOMYELITIS. THERE IS ALSO SOFT TISSUE SWELLING AND GAS IN THE SOFT TISSUES ADJACENT TO THE HEAD OF THE 2ND METATARSAL CONSISTENT WITH SOFT TISSUE INFECTION. TECHNICAL DOCUMENTATION: JOB ID: [id number] [employer]- All Rights Reserved Reading location - IP/workstation name: [email or web address]
[2019-10-15 12:22] LABS: ERYTHROCYTE SEDIMENTATION RATE 60 mm/hr (0-20)
[2019-10-15] MEDS ORDERED: VANCOMYCIN HCL INJ 1000 MG VIAL IV ONE (16:09)
[2019-10-15] MEDS ORDERED: CEFEPIME 2 GM/D5W RTU 2 GM/50 ML RTUPB IV ONE (16:30)
[2019-10-15] MEDS ORDERED: MORPHINE SULFATE 10 MG/ML INJ IV ONE (16:30)
--- NOTE | 2019-10-15 16:32 | ER Document Report ---
ED General - General Chief Complaint: Foot Pain Stated Complaint: LEFT FOOT PAIN Time Seen by Provider: 10/15/19 11:10 Primary Care Provider: ROSLYN RAMIRES DPM [ACTIVE STAFF] - Follow up as needed Mode of Arrival: Ambulatory Notes: 64-year-old male with history of diabetic ulcers to bilateral feet presents for possible osteomyelitis to his left foot. Patient was seen by his loom setter, Dr. Ramires, today who sent him to the ER for possible osteomyelitis. Patient has had a recent amputation to the left foot in March 2019. Dr. Ramires states he has debrided the ulcer on the right and this seems to be healing better however the one on the left does not seem to be healing well. Patient is a poor historian. Patient denies any fever. Patient does state it hurts sometimes. Patient does also have wound care that also helps with his foot. TRAVEL OUTSIDE OF THE [place] IN LAST 30 DAYS: No - Related Data Allergies/Adverse Reactions: No Known Allergies Allergy (Verified 09/24/19 14:24) Past Medical History - General Information source: Patient - Social History Smoking Status: Never Smoker Frequency of alcohol use: None Drug Abuse: None Family History: Reviewed & Not Pertinent Patient has suicidal ideation: No Patient has homicidal ideation: No - Past Medical History Cardiac Medical History: Reports: Hx Atrial Fibrillation - told he had irregular hearteat, ?Afib? --on Plavix, Hx Congestive Heart Failure, Hx Hypercholesterolemia, Hx Hypertension, Hx Peripheral Vascular Disease Endocrine Medical History: Reports: Hx Diabetes Mellitus Type 1, Hx Diabetes Mellitus Type 2 Renal/ Medical History: Denies: Hx Peritoneal Dialysis Past Surgical History: Reports: Hx Orthopedic Surgery - left ankle Fx; amputation left big toe, Hx Vascular Surgery Review of Systems - Review of Systems Notes: Constitutional: Negative for fever. HENT: Negative for sore throat. Eyes: Negative for visual changes. Cardiovascular: Negative for chest pain. Respiratory: Negative for shortness of breath. Gastrointestinal: Negative for abdominal pain, vomiting or diarrhea. Genitourinary: Negative for dysuria. Musculoskeletal: Positive for foot pain. Negative for back pain. Skin: Positive for infection to left foot. Negative for rash. Neurological: Negative for headaches, weakness or numbness. 10 point ROS negative except as marked above and in HPI. Physical Exam - Vital signs Vitals: Temp Pulse Resp BP Pulse Ox 98.3 F 90 14 103/63 99 10/15/19 11:17 10/15/19 11:17 10/15/19 11:17 10/15/19 11:17 10/15/19 11:17 - Notes Notes: GENERAL: Well-appearing, well-nourished and in no acute distress. HEAD: Atraumatic, normocephalic. EYES: Extraocular movements intact, sclera anicteric, conjunctiva are normal. NECK: Normal range of motion, supple without lymphadenopathy or JVD. LUNGS: Breath sounds clear to auscultation bilaterally and equal. No wheezes rales or rhonchi. HEART: Regular rate and rhythm without murmurs, rubs or gallops. EXTREMITIES: Left foot: Ulcer noted proximal to 2nd metatarsal, mild necrosis with odor. Right foot: Chronic ulcer noted with clean edges. No odor. NEUROLOGICAL: Cranial nerves II through XII grossly intact. Normal speech, normal gait. PSYCH: Normal mood, normal affect. SKIN: Warm, Dry, normal turgor, no rashes or lesions noted. Course - Re-evaluation Re-evalutation: 10/15/19 64 y/o male presents with possible osteomyelitis to his left foot, sent by Dr. Ramires, his loom setter. Leukocytosis. Nontachycardic. Afebrile. X-ray shows gas/soft tissue swelling near 2nd metatarsal concerning for osteomelitis. 10/15/19 16:[address] Vail, ortho, due to possible osteomyelitis of left foot. 10/15/19 16:43 Dr. Vail states to call loom setter. Page out to Dr. Ramires, pt's loom setter. 10/15/19 16:[address] Ramires, pt's loom setter, who recommends calling [facility] inventory control/shipping receiving to evaluate the pt. 10/15/19 16:[address] Dee who states he will consult on this pt. 10/15/19 17:[address] Benoit who accepted pt for admission. - Vital Signs Vital signs: Temp Pulse Resp BP Pulse Ox 98.1 F 84 20 134/72 H 99 10/15/19 15:38 10/15/19 15:38 10/15/19 15:38 10/15/19 15:38 10/15/19 15:38 - Laboratory Result Diagrams: 10/15/19 11:25 10/15/19 11:25 Laboratory results interpreted by me: 10/15/19 10/15/19 11:25 11:25 WBC 13.9 H RDW 14.5 H Lymph % (Auto) 8.6 L Absolute Neuts (auto) 11.7 H Seg Neutrophils % 83.9 H ESR 60 H Carbon Dioxide 31 H Glucose 279 H Alkaline Phosphatase 135 H C-Reactive Protein 40.3 H Discharge - Discharge Clinical Impression: Osteomyelitis of left foot Qualifiers: Osteomyelitis type: unspecified type Qualified Code(s): M86.9 - Osteomyelitis, unspecified Disposition: ADMITTED INPATIENT Unit Admitted: Medical Floor Referrals: ROSLYN RAMIRES DPM [ACTIVE STAFF] - Follow up as needed
[2019-10-15] MEDS ORDERED: ONDANSETRON 4 MG TAB.RAPDIS PO PRN (18:47)
[2019-10-15] MEDS ORDERED: PROMETHAZINE HCL INJ 25 MG/1 ML VIAL IV PRN (18:47)
[2019-10-15] MEDS ORDERED: ONDANSETRON HCL INJ/PF 4 MG/2 ML SDV IV PRN (18:47)
[2019-10-15] MEDS ORDERED: PROMETHAZINE HCL 25 MG TABLET PO PRN (18:47)
--- NOTE | 2019-10-15 19:11 | PDOC H&P ---
History of Present Illness Admission Date/PCP: YESI WALEKR MD History of Present Illness: CATHERINE LEROY II is a 64 year old male who presents after 5 days of progressive left diabetic foot ulcer wound progression, sent by his hardware installer Dr. Garay for surgical evaluation in ED. Per patient, he has been completely asymptomatic and denies fever/chills/nausea/vomiting/diarrhea/abdominal pain/malaise. On admission, patient had x-ray of his left foot which showed gas and concerns for osteomyelitis. Patient has wound care nursing that comes to his home and they also expressed their concerns about the deterioration of this wound on Saturday prior to admission. Patient is afebrile however his WBC is up to 13.9 on admission. ESR up to 60 and CRP up to 40.3. Podiatry was notified of admission by ED who requested general surgery consult. ED called general surgeon who is agreed to see patient and is planning a BKA in the near future. Patient was started on vancomycin and cefepime for antibiotic coverage. He has no signs of sepsis on admission other than high WBC. Past Medical History Cardiac Medical History: Reports: Atrial Fibrillation - told he had irregular hearteat, ?Afib? --on Plavix, Congestive Heart Failure, Hyperlipidema, Hypertension, Peripheral Vascular Disease Pulmonary Medical History: Reports: None Neurological Medical History: Reports: None Endocrine Medical History: Reports: Diabetes Mellitus Type 1, Diabetes Mellitus Type 2 Malignancy Medical History: Reports: None Past Surgical History Past Surgical History: Reports: Orthopedic Surgery - left ankle Fx; amputation left big toe, Vascular Surgery Social History Information Source: Patient Lives with: Alone Smoking Status: Former Smoker Frequency of Alcohol Use: None Drugs: None Hx Prescription Drug Abuse: No - Advance Directive Resuscitation Status: Full Code Surrogate healthcare decision maker:: Leonidas Isaac Family History Family History: Reviewed & Not Pertinent Parental Family History Reviewed: Yes Children Family History Reviewed: Yes Sibling(s) Family History Reviewed.: Yes Medication/Allergy Allergies/Adverse Reactions: No Known Allergies Allergy (Verified 09/24/19 14:24) Review of Systems All systems: reviewed and no additional remarkable complaints except as stated - No acute symptoms, only chronic neuropathic lower extremity pain bilaterally. All other symptoms per HPI. Physical Exam Vital Signs: Temp Pulse Resp BP Pulse Ox 98.5 F 85 18 141/68 H 100 10/15/19 18:48 10/15/19 18:48 10/15/19 18:48 10/15/19 18:48 10/15/19 18:48 Intake & Output 10/14/19 10/15/19 10/16/19 06:59 06:59 06:59 Intake Total 50 Balance 50 Weight 91.1 kg General appearance: PRESENT: no acute distress, well-developed, well-nourished Head exam: PRESENT: atraumatic, normocephalic Eye exam: PRESENT: conjunctiva pink. ABSENT: scleral icterus Mouth exam: PRESENT: moist Respiratory exam: PRESENT: clear to auscultation emma. ABSENT: rales, rhonchi, wheezes Cardiovascular exam: PRESENT: RRR. ABSENT: diastolic murmur, rubs, systolic murmur Pulses: PRESENT: +1 pedal pulses bilateral GI/Abdominal exam: PRESENT: normal bowel sounds, soft. ABSENT: distended, guarding, mass, organolmegaly, rebound, tenderness Rectal exam: PRESENT: deferred Extremities exam: PRESENT: other - Severe left diabetic foot ulcer with necrotic tissue, no purulent drainage noted; right foot with less extensive diabetic ulceration Neurological exam: PRESENT: alert, awake, oriented to person, oriented to place, oriented to time, oriented to situation Psychiatric exam: PRESENT: appropriate affect, normal mood Skin exam: PRESENT: dry, warm Results Laboratory Results: 10/15/19 11:25 10/15/19 11:25 10/15/19 10/15/19 11:25 11:25 WBC 13.9 H RBC 5.08 Hgb 15.1 Hct 45.4 MCV 89 MCH 29.7 MCHC 33.3 RDW 14.5 H Plt Count 358 Seg Neutrophils % 83.9 H Sodium 140.2 Potassium 3.7 Chloride 99 Carbon Dioxide 31 H Anion Gap 10 BUN 17 Creatinine 0.87 Est GFR ( Amer) > 60 Glucose 279 H Calcium 9.7 Total Bilirubin 0.7 AST 23 Alkaline Phosphatase 135 H C-Reactive Protein 40.3 H Total Protein 7.4 Albumin 3.6 Impressions: Foot X-Ray 10/15/19 11:17 IMPRESSION: 1. WORSENING DEMINERALIZATION IN THE RIGHT FOOT. STABLE SURGICAL CHANGES AND CHRONIC FINDINGS. 2. WORSENING DEMINERALIZATION IN THE LEFT FOOT. STABLE SURGICAL CHANGES AND CHRONIC FINDINGS. THE PROXIMAL PHALANX OF THE 2ND TOE IS NO LONGER PRESENT. NO HISTORY AVAILABLE TO WHETHER THIS IS DUE TO SURGERY. IF THIS IS NOT RELATED TO PRIOR SURGERY, THEN THIS WOULD BE INDICATIVE OF DESTRUCTION SECONDARY TO OSTEOMYELITIS. THERE IS ALSO SOFT TISSUE SWELLING AND GAS IN THE SOFT TISSUES ADJACENT TO THE HEAD OF THE 2ND METATARSAL CONSISTENT WITH SOFT TISSUE INFECTION. Assessment and Plan - Diagnosis (1) Osteomyelitis of left foot Qualifiers: Osteomyelitis type: other acute Qualified Code(s): M86.172 - Other acute osteomyelitis, left ankle and foot Is this a current diagnosis for this admission?: Yes Plan: Sent to ED by hardware installer Dr. Garay General surgery consulted by ED, planning BKA of left foot Vancomycin/cefepime IV started on admission Follow-up any wound cultures obtained from OR Needs follow-up with wound care outpatient Pain management (2) Diabetic foot ulcer with osteomyelitis Is this a current diagnosis for this admission?: Yes (3) Diabetic foot ulcer associated with type 2 diabetes mellitus Is this a current diagnosis for this admission?: Yes (4) Diabetic neuropathy Is this a current diagnosis for this admission?: Yes Plan: Only takes oxycodone rarely for this, denies taking gabapentin or Lyrica in the past (5) T2DM (type 2 diabetes mellitus) Qualifiers: Diabetes mellitus mcc insulin use: with mcc use Diabetes mellitus complication status: with circulatory complication Diabetes mellitus complication detail: with peripheral angiopathy with gangrene Qualified Code(s): E11.52 - Type 2 diabetes mellitus with diabetic peripheral angiopathy with gangrene; Z79.4 - salvage determiner (current) use of insulin Is this a current diagnosis for this admission?: Yes Plan: Per patient, takes NovoLog 70/30 at 50 units a.m. and 30 units p.m.; reduced d ose while inpatient L DCI, Accu-Cheks Hemoglobin A1c (6) HTN (hypertension) Is this a current diagnosis for this admission?: Yes Plan: Patient does not remember any of his home medications Add oral medication slowly as needed (7) HLD (hyperlipidemia) Is this a current diagnosis for this admission?: Yes Plan: Unclear patient takes statin and he does not know (8) PAD (peripheral artery disease) Is this a current diagnosis for this admission?: Yes Plan: Per patient, status post bypass and left lower extremity, followed by vascular surgery outpatient - Time Time Spent with patient: 35 or more minutes Medications reviewed and adjusted accordingly: Yes - Inpatient Certification Medical Necessity: Significant Comorbidiites Make Outpatient Treatment Too Risky, Need Close Monitoring Due to Risk of Patient Decompensation, Need for IV Antibiotics, Need for Surgery
--- NOTE | 2019-10-15 19:15 | ADVANCED CARE ---
- Diagnosis (1) Osteomyelitis of left foot Diagnosis Current: Yes (2) Diabetic foot ulcer with osteomyelitis Diagnosis Current: Yes (3) Diabetic foot ulcer associated with type 2 diabetes mellitus Diagnosis Current: Yes (4) Diabetic neuropathy Diagnosis Current: Yes (5) T2DM (type 2 diabetes mellitus) Diagnosis Current: Yes (6) HTN (hypertension) Diagnosis Current: Yes (7) HLD (hyperlipidemia) Diagnosis Current: Yes (8) PAD (peripheral artery disease) Diagnosis Current: Yes Attendance: Patient only Resuscitation Status: Full Code Discussion: Extensive discussion of all aspects of code including chest compressions/intubation/cardioversion and patient states he would like to be full code. Time Spent: 17 minutes
--- NOTE | 2019-10-15 21:23 | PDOC CONSULTATION ---
Consultation Consult Date: 10/15/19 Provider Consulted: SURGICAL SURGICALIST Consult reason:: diabetic foot infection, left History of Present Illness Admission Date/PCP: 10/15/19 19:32 YESI WALKER MD Patient complains of: pain and purulent drainage of the left foot History of Present Illness: CATHERINE LEROY II is a 64 year old male seen in consultation at the request of the hospitalist service. The pt has a long h/o of diabetic foot infections. He has two previous toe amputations of the left foot. He also has a h/o peripheral vascular disease with LE stenting and a "vein bypass". He reports that "noone can find pulses" in his feet. His pain began 2 days ago. The pt sees Dr. Zamudio, who has recently debrided his foot in the office. The pt began having pain on the pedal surface of his foot with black discoloration. It also began draining large amounts of purulent material. The pt reports that palpation and pressure make it worse. He cannot walk on the foot at present. He rates his pain as 10/10. He denies a h/o RI or stroke. He denies F/C, N/V, melena, hematochezia, chest pain, shortness of breath, dizziness, orthostasis, abdominal pain, malaise, fatigue. Past Medical History Cardiac Medical History: Reports: Atrial Fibrillation - told he had irregular hearteat, ?Afib? --on Plavix, Congestive Heart Failure, Hyperlipidema, Hypertension, Peripheral Vascular Disease Pulmonary Medical History: Reports: None Neurological Medical History: Reports: None Endocrine Medical History: Reports: Diabetes Mellitus Type 1, Diabetes Mellitus Type 2 Malignancy Medical History: Reports: None Past Surgical History Past Surgical History: Reports: Orthopedic Surgery - left ankle Fx; amputation left big toe, Vascular Surgery Social History Lives with: Alone Smoking Status: Former Smoker Frequency of Alcohol Use: None Drugs: None Hx Prescription Drug Abuse: No - Advance Directive Resuscitation Status: Full Code Family History Family History: Reviewed & Not Pertinent Parental Family History Reviewed: Yes Children Family History Reviewed: Yes Sibling(s) Family History Reviewed.: Yes Medication/Allergy Home Medications: Clindamycin HCl [Cleocin 300 mg Capsule] 300 mg PO QID 10/15/19 Insulin Aspart Prot/Insuln Asp [Novolog Mix 70-30 Flexpen] 30 units SQ QAM 10/15/19 Insulin Aspart Prot/Insuln Asp [Novolog Mix 70-30 Flexpen] 70 units SQ QHS 10/15/19 Lisinopril [Prinivil 40 mg Tablet] 40 mg PO DAILY 10/15/19 Metoprolol Tartrate [Lopressor 50 mg Tablet] 50 mg PO Q12 10/15/19 Oxycodone HCl/Acetaminophen [Percocet 10-325 mg Tablet] 1 tab PO Q6 10/15/19 Allergies/Adverse Reactions: No Known Allergies Allergy (Verified 09/24/19 14:24) Review of Systems Constitutional: ABSENT: anorexia, chills, fatigue Eyes: ABSENT: visual disturbances Ears: ABSENT: hearing changes Nose, Mouth, and Throat: ABSENT: mouth pain, sore throat Cardiovascular: ABSENT: chest pain Respiratory: ABSENT: cough Gastrointestinal: ABSENT: abdominal pain Genitourinary: ABSENT: difficulty urinating, dysuria Musculoskeletal: ABSENT: back pain Integumentary: PRESENT: wounds - left foot wound, draining purulent material. ABSENT: pruritus Neurological: ABSENT: confusion, convulsions, dizziness Psychiatric: ABSENT: anxiety, depression Endocrine: ABSENT: cold intolerance, heat intolerance Hematologic/Lymphatic: ABSENT: easy bleeding, easy bruising Physical Exam Vital Signs: Temp Pulse Resp BP Pulse Ox 97.5 F 86 16 142/83 H 100 10/15/19 20:22 10/15/19 20:22 10/15/19 20:22 10/15/19 20:22 10/15/19 20:22 Intake & Output 10/14/19 10/15/19 10/16/19 06:59 06:59 06:59 Intake Total 50 Balance 50 Weight 91.1 kg General appearance: PRESENT: no acute distress, cooperative, disheveled Head exam: PRESENT: atraumatic, normocephalic Eye exam: PRESENT: EOMI, PERRLA. ABSENT: scleral icterus Mouth exam: PRESENT: moist, neck supple Neck exam: ABSENT: meningismus, tenderness, thyromegaly, tracheal deviation, tracheostomy Respiratory exam: PRESENT: clear to auscultation emma, unlabored. ABSENT: chest wall tenderness, tachypnea, wheezes Cardiovascular exam: ABSENT: tachycardia Vascular exam: PRESENT: other - no palpable or doppler arterial signal in DP or PT on left. Monophasic popliteal on left. GI/Abdominal exam: PRESENT: soft. ABSENT: distended, rigid, tenderness Rectal exam: PRESENT: deferred Extremities exam: ABSENT: clubbing Musculoskeletal exam: ABSENT: deformity Neurological exam: PRESENT: alert, awake, oriented to person, oriented to place, oriented to time, oriented to situation, CN II-XII grossly intact Psychiatric exam: ABSENT: agitated, anxious, depressed Focused psych exam: ABSENT: delusional Skin exam: ABSENT: erythema, jaundice Results Laboratory Results: 10/15/19 11:25 10/15/19 11:25 10/15/19 10/15/19 11:25 11:25 WBC 13.9 H RBC 5.08 Hgb 15.1 Hct 45.4 MCV 89 MCH 29.7 MCHC 33.3 RDW 14.5 H Plt Count 358 Seg Neutrophils % 83.9 H Sodium 140.2 Potassium 3.7 Chloride 99 Carbon Dioxide 31 H Anion Gap 10 BUN 17 Creatinine 0.87 Est GFR ( Amer) > 60 Glucose 279 H Calcium 9.7 Total Bilirubin 0.7 AST 23 Alkaline Phosphatase 135 H C-Reactive Protein 40.3 H Total Protein 7.4 Albumin 3.6 Impressions: Foot X-Ray 10/15/19 11:17 IMPRESSION: 1. WORSENING DEMINERALIZATION IN THE RIGHT FOOT. STABLE SURGICAL CHANGES AND C HRONIC FINDINGS. 2. WORSENING DEMINERALIZATION IN THE LEFT FOOT. STABLE SURGICAL CHANGES AND CHRONIC FINDINGS. THE PROXIMAL PHALANX OF THE 2ND TOE IS NO LONGER PRESENT. NO HISTORY AVAILABLE TO WHETHER THIS IS DUE TO SURGERY. IF THIS IS NOT RELATED TO PRIOR SURGERY, THEN THIS WOULD BE INDICATIVE OF DESTRUCTION SECONDARY TO OSTEOMYELITIS. THERE IS ALSO SOFT TISSUE SWELLING AND GAS IN THE SOFT TISSUES ADJACENT TO THE HEAD OF THE 2ND METATARSAL CONSISTENT WITH SOFT TISSUE INFECTION. Assessment & Plan - Diagnosis (1) Abscess of left foot Is this a current diagnosis for this admission?: Yes (2) Diabetic foot ulcer associated with type 2 diabetes mellitus Qualifiers: Diabetic foot ulcer location: midfoot Laterality: left Is this a current diagnosis for this admission?: Yes - Plan Summary Plan Summary: This is a 64-year-old male with a left diabetic foot infection. Patient reports increasing amounts of pain, and purulent material. The patient has obvious ne crosis of the plantar surface of the foot. An x-ray shows gas gangrene around the metatarsals. The patient has no Doppler dorsalis pedis and posterior tibial pulses present in that left foot. He does have a monophasic popliteal Doppler signal. The patient has had previous stents in his lower extremities as well as a "vein bypass". I have offered the patient transfer to [facility] if he is int erested in potential salvage of the foot (although this will very likely be unsuccessful). The patient has declined transfer to [facility] to see his vascular surgeon. I have conveyed to him that below-knee amputation is the only reasonable option for him at this institution. The patient is requesting that below-knee amputation be performed, as he has seen no improvement in his left foot over the last several months. Risks/benefits discussed, informed consent obtained, and all questions answered.
[2019-10-15] MEDS: HEPARIN SOD (PORCINE) 5,000 UNIT/ML 1 ML VIAL SUBCUT SCH (21:34)
[2019-10-15] MEDS: CEFEPIME 2 GM/D5W RTU 2 GM/50 ML RTUPB IV SCH (21:34)
[2019-10-15] MEDS: VANCOMYCIN HCL 1,250 MG in DEXTROSE 5%-WATER 250 ML IV SCH (21:34)
[2019-10-15] MEDS: OXYCODONE-ACETAMINOPHEN 5-325 MG TABLET PO PRN (22:09)
[2019-10-15] MEDS: INSULIN LISPRO 100 UNIT/ML 3 ML VIAL SUBCUT SCH (22:10)
[2019-10-15 22:55] LABS: ANION GAP 10 (5-19); BLOOD UREA NITROGEN 17 mg/dL (7-20); CALCIUM 9.5 mg/dL (8.4-10.2); CARBON DIOXIDE 31 mmol/L (22-30); CHLORIDE 96 mmol/L (98-107); GLUCOSE 316 mg/dL (75-110); POTASSIUM 4.3 mmol/L (3.6-5.0)
[2019-10-16] MEDS: HEPARIN SOD (PORCINE) 5,000 UNIT/ML 1 ML VIAL SUBCUT SCH ×3 (05:38→21:25)
[2019-10-16] MEDS: CEFEPIME 2 GM/D5W RTU 2 GM/50 ML RTUPB IV SCH ×3 (05:52→21:25)
[2019-10-16 06:57] LABS: ABSOLUTE BASOPHILS # (AUTO) 0.1 10^3/uL (0.0-0.2); ABSOLUTE EOSINOPHILS # (AUTO) 0.2 10^3/uL (0.0-0.6); ABSOLUTE LYMPHOCYTES (AUTO) 1.2 10^3/uL (0.5-4.7); ABSOLUTE MONOCYTES (AUTO) 1.2 10^3/uL (0.1-1.4); ABSOLUTE NEUT (AUTO) 8.8 10^3/uL (1.7-8.2); BASOPHILS % (AUTO) 1.1 % (0-2); EOSINOPHILS % (AUTO) 1.4 % (0-6); HEMOGLOBIN 14.6 g/dL (13.5-17.0); LYMPHOCYTES % (AUTO) 10.5 % (13-45); MEAN CORPUSCULAR HEMOGLOBIN 29.6 pg (27.0-33.4); MEAN CORPUSCULAR HGB CONC 33.1 g/dL (32.0-36.0); MEAN CORPUSCULAR VOLUME 90 fl (80-97); MONOCYTES % (AUTO) 10.7 % (3-13); PLATELET COUNT 313 10^3/uL (150-450); RED BLOOD COUNT 4.92 10^6/uL (4.35-5.55); RED CELL DISTRIBUTION WIDTH 15.1 % (11.5-14.0); SEGMENTED NEUTROPHILS % (AUTO) 76.3 % (42-78); TOTAL CELLS COUNTED % (AUTO) 100 %; WHITE BLOOD COUNT 11.6 10^3/uL (4.0-10.5)
--- NOTE | 2019-10-16 08:31 | RADIOLOGY REPORT (SQ) ---
EXAM DESCRIPTION: CHEST SINGLE VIEW COMPLETED DATE/TIME: 10/16/2019 8:06 am REASON FOR STUDY: preop COMPARISON: AP view of the chest from 07/02/2019. EXAM PARAMETERS: NUMBER OF VIEWS: One view. TECHNIQUE: An AP view of the chest was obtained. RADIATION DOSE: NA LIMITATIONS: None. FINDINGS: LUNGS AND PLEURA: No consolidation, pleural effusion or pneumothorax. MEDIASTINUM AND HILAR STRUCTURES: No mediastinal or hilar contour abnormality. HEART AND VASCULAR STRUCTURES: Unchanged cardiomegaly. The pulmonary vasculature is within normal li mits. BONES: No acute findings. HARDWARE: None in the chest. OTHER: No other finding. IMPRESSION: Cardiomegaly and low inspiratory lung volumes without a superimposed acute cardiopulmona ry process. TECHNICAL DOCUMENTATION: JOB ID: [id number] [employer]- All Rights Reserved Reading location - IP/workstation name: [email or web address]
[2019-10-16] MEDS: INSULIN LISPRO 100 UNIT/ML 3 ML VIAL SUBCUT SCH ×4 (08:54→22:02)
[2019-10-16] MEDS: HUM INSULIN NPH/REG INSULIN HM 100 UNIT/1 ML 3 ML SUBCUT SCH ×2 (08:55→19:49)
--- NOTE | 2019-10-16 09:41 | XCELERA REPORT ---
[address] [address] Transthoracic Echocardiogram Report Name: CATHERINE LEROY II Age: 64 yrs Gender: Male : 1955 Patient Status: Inpatient Patient Location: [address] [place] [address] Study Date: 10/16/2019 08:07 AM Height: 68 in Weight: 186 lb BSA: 2.0 m2 Procedure: A complete two-dimensional transthoracic echocardiogram was performed (2D, M-mode, spectral and color flow Doppler). The study was technically adequate with some images being suboptimal in quality. Reason For Study: preop Ordering Physician: MARQUISE MICHAEL Performed By: Obinna Reid Interpretation Summary LV EF is 45% Left ventricular systolic function is mildly reduced. There is moderate to severe concentric left ventricular hypertrophy. Doppler measurements suggest reversible restrictive left ventricular relaxation, which is associated with grade III/IV or moderate diastolic dysfunction Regional wall motion abnormalities cannot be excluded due to limited visualization. The left ventricle is grossly normal size. The right ventricular systolic function is normal. The left atrium is mildly dilated. The right atrium is normal in size There is no mitral valve stenosis. There is a trace to mild amount of mitral regurgitation No aortic regurgitation is present. There is no aortic valve stenosis There is a mild amount of tricuspid regurgitation There is moderate pulmonary hypertension by echo Right ventricular systolic pressure is estimated to be elevated at 40-50mmHg. The inferior vena cava appeared normal and decreased > 50% with respiration (RAP 5-10 mmHg) There is no pericardial effusion. MMode/2D Measurements & Calculations RVDd: 3.4 cm LVIDd: 5.0 cm FS: 22.5 % Ao root diam: 3.1 cm IVSd: 1.5 cm LVIDs: 3.9 cm EDV(Teich): 120.4 ml Ao root area: 7.4 cm2 LVPWd: 1.5 cm ESV(Teich): 66.0 ml LA dimension: 4.0 cm EF(Teich): 45.2 % Doppler Measurements & Calculations MV E max laureen: MV P1/2t max laureen: Ao V2 max: LV V1 max P.1 cm/sec 148.4 cm/sec 116.2 cm/sec 3.2 mmHg MV P1/2t: 29.1 msec Ao max P.4 mmHg LV V1 max: MVA(P1/2t): 7.6 cm2 89.5 cm/sec MV dec slope: 1493 cm/sec2 MV dec time: 0.12 sec PA V2 max: TR max laureen: MV P1/2t-pr_phl: 72.7 cm/sec 316.3 cm/sec 29.1 msec PA max P.1 mmHg TR max P.0 mmHg Left Ventricle The left ventricle is grossly normal size. There is moderate to severe concentric left ventricular hypertrophy. Left ventricular systolic function is mildly reduced. LV EF is 45%. Doppler measurements suggest reversible restrictive left ventricular relaxation, which is associated with grade III/IV or moderate diastolic dysfunction. Regional wall motion abnormalities cannot be excluded due to limited visualization. Right Ventricle The right ventricle is grossly normal size. There is normal right ventricular wall thickness. The right ventricular systolic function is normal. Atria The right atrium is normal in size. The left atrium is mildly dilated. Interarterial septum not well visualized and not well dopplered. Cannot comment on ASD/PFO presence. Mitral Valve The mitral valve leaflets are sclerotic, but show no functional abnormalities. There is no mitral valve stenosis. There is a trace to mild amount of mitral regurgitation. Aortic Valve The aortic valve opens well. There is no aortic valve stenosis. No aortic regurgitation is present. Tricuspid Valve The tricuspid valve is not well visualized, but is grossly normal. There is no tricuspid stenosis. There is a mild amount of tricuspid regurgitation. There is moderate pulmonary hypertension by echo. Right ventricular systolic pressure is estimated to be elevated at 40-50mmHg. Pulmonic Valve The pulmonic valve is not well visualized. Great Vessels The aortic root is not well visualized but is probably normal size. The inferior vena cava appeared normal and decreased > 50% with respiration (RAP 5-10 mmHg). Effusions There is no pericardial effusion. : MARQUISE MICHAEL Shyamal
[2019-10-16] MEDS ORDERED: VANCOMYCIN HCL INJ 1000 MG VIAL IV SCH (10:00)
[2019-10-16] MEDS: VANCOMYCIN HCL 1,250 MG in DEXTROSE 5%-WATER 250 ML IV SCH ×2 (10:26→22:01)
[2019-10-16] MEDS: OXYCODONE-ACETAMINOPHEN 5-325 MG TABLET PO PRN ×2 (10:26→21:07)
[2019-10-16] MEDS: DOCUSATE SODIUM 100 MG CAPSULE PO SCH (10:40)
--- NOTE | 2019-10-16 10:46 | PDOC PROGRESS REPORT ---
Subjective Progress Note for:: 10/16/19 Reason For Visit: OSTEOMYELITIS OF LEFT FOOT Septic left foot with pain Physical Exam Vital Signs: Temp Pulse Resp BP Pulse Ox 98.8 F 99 16 119/61 100 10/16/19 08:26 10/16/19 08:26 10/16/19 08:26 10/16/19 08:26 10/16/19 08:26 Intake & Output 10/15/19 10/16/19 10/17/19 06:59 06:59 06:59 Intake Total 300 Output Total 500 Balance -200 Weight 84.4 kg General appearance: PRESENT: no acute distress Musculoskeletal exam: PRESENT: other - Left lower extremity examined. I did not take the dressing off the foot. Patient has scars consistent with previous surgery. There is extensive lichenification of the tissue from the mid calf distally. There is mild edema. Results Laboratory Results: 10/16/19 06:43 10/15/19 22:20 10/15/19 10/15/19 10/15/19 11:25 11:25 22:20 WBC 13.9 H RBC 5.08 Hgb 15.1 Hct 45.4 MCV 89 MCH 29.7 MCHC 33.3 RDW 14.5 H Plt Count 358 Seg Neutrophils % 83.9 H Sodium 140.2 137.4 Potassium 3.7 4.3 Chloride 99 96 L Carbon Dioxide 31 H 31 H Anion Gap 10 10 BUN 17 17 Creatinine 0.87 0.83 Est GFR ( Amer) > 60 > 60 Glucose 279 H 316 H Calcium 9.7 9.5 Total Bilirubin 0.7 AST 23 Alkaline Phosphatase 135 H C-Reactive Protein 40.3 H Total Protein 7.4 Albumin 3.6 10/16/19 06:43 WBC 11.6 H RBC 4.92 Hgb 14.6 Hct 44.0 MCV 90 MCH 29.6 MCHC 33.1 RDW 15.1 H Plt Count 313 Seg Neutrophils % 76.3 Sodium Potassium Chloride Carbon Dioxide Anion Gap BUN Creatinine Est GFR ( Amer) Glucose Calcium Total Bilirubin AST Alkaline Phosphatase C-Reactive Protein Total Protein Albumin Impressions: Foot X-Ray 10/15/19 11:17 IMPRESSION: 1. WORSENING DEMINERALIZATION IN THE RIGHT FOOT. STABLE SURGICAL CHANGES AND CHRONIC FINDINGS. 2. WORSENING DEMINERALIZATION IN THE LEFT FOOT. STABLE SURGICAL CHANGES AND CHRONIC FINDINGS. THE PROXIMAL PHALANX OF THE 2ND TOE IS NO LONGER PRESENT. NO HISTORY AVAILABLE TO WHETHER THIS IS DUE TO SURGERY. IF THIS IS NOT RELATED TO PRIOR SURGERY, THEN THIS WOULD BE INDICATIVE OF DESTRUCTION SECONDARY TO OSTEOMYELITIS. THERE IS ALSO SOFT TISSUE SWELLING AND GAS IN THE SOFT TISSUES ADJACENT TO THE HEAD OF THE 2ND METATARSAL CONSISTENT WITH SOFT TISSUE INFECTION. Chest X-Ray 10/16/19 07:36 IMPRESSION: Cardiomegaly and low inspiratory lung volumes without a superimposed acute cardiopulmonary process. Assessment & Plan - Diagnosis (1) Osteomyelitis of left foot Qualifiers: Osteomyelitis type: other acute Qualified Code(s): M86.172 - Other acute osteomyelitis, left ankle and foot Is this a current diagnosis for this admission?: Yes Plan: Impression: Septic gangrenous left foot in diabetic with severe lower extremity peripheral vascular disease, status post revascularization in the remote past. Plan: 1. Patient is set up for left below the knee amputation. We will proceed with the operation today. I explained to the patient that he is at risk for none wound healing due to the poor condition of the skin below the knee, as well as severe peripheral vascular disease despite previous revascularization efforts to the left lower extremity. He expresses understanding and agrees to proceed. - Time Time Spent with patient: 15-24 minutes Medications reviewed and adjusted accordingly: Yes Anticipated discharge: Home
--- NOTE | 2019-10-16 11:24 | EKG REPORT ---
SEVERITY:- ABNORMAL ECG - ATRIAL FIBRILLATION LAD, CONSIDER LEFT ANTERIOR FASCICULAR BLOCK REPOL ABNRM SUGGESTS ISCHEMIA, DIFFUSE LEADS : Confirmed by: Petey Talavera MD 16-Oct-2019 11:23:07
[2019-10-16] MEDS ORDERED: LIDOCAINE 1% INJ-PF (10 MG/ML) 30 ML SDV ONE (13:03)
[2019-10-16] MEDS ORDERED: FENTANYL CITRATE INJ/PF 100 MCG/2 ML AMPUL ONE (13:06)
[2019-10-16] MEDS ORDERED: HYDROMORPHONE HCL INJ/PF 2 MG/ML AMPULE ONE (13:06)
[2019-10-16] MEDS ORDERED: MIDAZOLAM 2 MG/2 ML INJ ONE (13:06)
[2019-10-16] MEDS ORDERED: PROPOFOL INJ 200 MG/20 ML VIAL IV ONE (13:07)
[2019-10-16] MEDS ORDERED: ONDANSETRON HCL INJ/PF 4 MG/2 ML SDV ONE (13:31)
[2019-10-16] MEDS ORDERED: SUCCINYLCHOLINE CHLORIDE INJ 200 MG/10 ML VIAL ONE (13:31)
[2019-10-16] MEDS ORDERED: DIPHENHYDRAMINE HCL 50 MG/ML VIAL IV PRN (13:54)
[2019-10-16] MEDS ORDERED: PROMETHAZINE HCL INJ 25 MG/1 ML VIAL IV PRN (13:54)
[2019-10-16] MEDS ORDERED: MORPHINE SULFATE 10 MG/ML INJ IV PRN (13:54)
[2019-10-16] MEDS ORDERED: FENTANYL CITRATE INJ/PF 100 MCG/2 ML AMPUL IV PRN ×2 (13:54)
[2019-10-16] MEDS: LISINOPRIL 10 MG TABLET PO SCH (14:16)
[2019-10-16] MEDS ORDERED: LABETALOL HCL INJ 20 MG/4 ML DISP.SYRIN IV ONE (14:16)
--- NOTE | 2019-10-16 15:25 | Operative Report ---
Operative Report DATE OF SURGERY: 10/16/19 PREOPERATIVE DIAGNOSIS: Septic left foot with osteomyelitis and gas gangrene; m oderate to severe peripheral vascular disease POSTOPERATIVE DIAGNOSIS: Same OPERATION: Left below the knee amputation with primary closure SURGEON: HUBER SPIVEY ANESTHESIA: GA TISSUE REMOVED OR ALTERED: Lower left leg and foot COMPLICATIONS: None ESTIMATED BLOOD LOSS: 300 cc INTRAOPERATIVE FINDINGS: See below PROCEDURE: The patient was taken the preop holding area to the main operating room and general anesthesia was induced. The left foot which had been previously wrapped was isolated, the lower leg from the thigh to the ankle was prepped and draped in sterile fashion. The left foot was isolated in a sterile bag. Instrumentation was set up for open amputation. Surgical plan surgical timeout were conducted. Markings were made on the skin for standard below the knee amputation, with the anterior flap approximately a hand breath below the anterior tibial tuberosity, and the posterior flap 1/2-2 times as long. The skin was incised #10 blade. Subcutaneous tissue and muscle divided with electrocautery. Small veins were cauterized as encountered as well as clip with a medium clip applicator. Of note the posterior skin flap was moderate to severely lichenified. Over the medial aspect of the incision we got into a hematoma. This appeared to be at the site of the previous operative incision for a vein bypass or some other reconstruction. The periosteum of both the and fibula were taken down with electrocautery and elevator. Both tibia and fibula were divided the oscillating pneumatic saw. The named vascular pedicles were attenuated. They were ligated with 0 silk suture. Posterior musculature was divided with electrocautery and final attachments between the lower leg and the distal leg were divided. The leg was passed off the table to pathology for permanent analysis We now spent some time cauterizing any venous bleeders. We used the respiratory to fall down the transected edge of the tibia, and a bone rongeur to trim the fi bula. We felt the stump was suitable for closure. The muscle bled briskly. The skin flaps appeared viable. Myodesis was accomplished in layers with 2-0 Vicryl suture. The posterior skin flap was brought up to the anterior fascia with multiple 2-0 interrupted and [id number] Vicryl sutures. The skin was approximated with 3-0 Ethilon and saloni. At the conclusion we are very satisfied with the closure of the stump. There was some swelling but the skin was not too tight. Xeroform 4 x 4's Kerlix Macario wraps applied. Patient tolerated procedure well, extubated, taken recovery in stable condition.
[2019-10-16] MEDS ORDERED: ACETAMINOPHEN 1,000 MG/100 ML RTUPB IV ONE (15:52)
--- NOTE | 2019-10-16 18:14 | PDOC PROGRESS REPORT ---
Subjective Progress Note for:: 10/16/19 Subjective:: Patient is a 64-year-old white male who presented with diabetic left foot ulcer which developed into osteomyelitis, sent by his medical records specialist office for admission and surgical evaluation. General surgeon consulted on admission by ED and arranged left BKA. Patient states he has been essentially asymptomatic throughout all of this other than chronic neuropathic pain which is not significantly worse on admission. Reason For Visit: OSTEOMYELITIS OF LEFT FOOT Physical Exam Vital Signs: Temp Pulse Resp BP Pulse Ox 98.8 F 99 16 119/61 100 10/16/19 08:26 10/16/19 08:26 10/16/19 08:26 10/16/19 08:26 10/16/19 08:26 Intake & Output 10/15/19 10/16/19 10/17/19 06:59 06:59 06:59 Intake Total 300 850 Output Total 500 125 Balance -200 725 Weight 84.4 kg 84.4 kg General appearance: PRESENT: no acute distress, well-developed, well-nourished Head exam: PRESENT: atraumatic, normocephalic Eye exam: PRESENT: conjunctiva pink Mouth exam: PRESENT: moist Respiratory exam: PRESENT: clear to auscultation emma. ABSENT: rales, rhonchi, wheezes Cardiovascular exam: PRESENT: irregular rhythm. ABSENT: diastolic murmur, rubs, systolic murmur, tachycardia GI/Abdominal exam: PRESENT: normal bowel sounds, soft. ABSENT: distended, guarding, mass, organolmegaly, rebound, tenderness Extremities exam: PRESENT: pedal edema Musculoskeletal exam: PRESENT: other - Bilateral foot ulcers related diabetes, left foot with extensive necrotic tissue and evidence of osteomyelitis Neurological exam: PRESENT: alert, awake Psychiatric exam: PRESENT: appropriate affect, normal mood Skin exam: PRESENT: dry, warm Results Laboratory Results: 10/16/19 06:43 10/15/19 22:20 10/15/19 10/16/19 10/16/19 22:20 06:43 11:14 WBC 11.6 H RBC 4.92 Hgb 14.6 Hct 44.0 MCV 90 MCH 29.6 MCHC 33.1 RDW 15.1 H Plt Count 313 Seg Neutrophils % 76.3 Sodium 137.4 Potassium 4.3 Chloride 96 L Carbon Dioxide 31 H Anion Gap 10 BUN 17 Creatinine 0.83 Est GFR ( Amer) > 60 Glucose 316 H Calcium 9.5 Blood Type A POSITIVE Antibody Screen NEGATIVE 10/15/19 16:45 Foot - Left Gram Stain - Final Impressions: Foot X-Ray 10/15/19 11:17 IMPRESSION: 1. WORSENING DEMINERALIZATION IN THE RIGHT FOOT. STABLE SURGICAL CHANGES AND CHRONIC FINDINGS. 2. WORSENING DEMINERALIZATION IN THE LEFT FOOT. STABLE SURGICAL CHANGES AND CHRONIC FINDINGS. THE PROXIMAL PHALANX OF THE 2ND TOE IS NO LONGER PRESENT. NO HISTORY AVAILABLE TO WHETHER THIS IS DUE TO SURGERY. IF THIS IS NOT RELATED TO PRIOR SURGERY, THEN THIS WOULD BE INDICATIVE OF DESTRUCTION SECONDARY TO OSTE OMYELITIS. THERE IS ALSO SOFT TISSUE SWELLING AND GAS IN THE SOFT TISSUES ADJACENT TO THE HEAD OF THE 2ND METATARSAL CONSISTENT WITH SOFT TISSUE INFECTION. Chest X-Ray 10/16/19 07:36 IMPRESSION: Cardiomegaly and low inspiratory lung volumes without a superimposed acute cardiopulmonary process. Assessment and Plan - Diagnosis (1) Osteomyelitis of left foot Qualifiers: Osteomyelitis type: other acute Qualified Code(s): M86.172 - Other acute osteomyelitis, left ankle and foot Is this a current diagnosis for this admission?: Yes Plan: Sent to ED by medical records specialist Dr. Garay General surgery consulted by ED, planning BKA of left foot Vancomycin/cefepime IV started on admission Follow-up any wound cultures obtained from OR Needs follow-up with wound care outpatient Pain management OR for BKA planned 10/16 by general surgery Held aspirin and clopidogrel per surgery; restart when surgery agrees however plan to not restart clopidogrel and instead start NOAC for A. fib (2) Chronic a-fib Is this a current diagnosis for this admission?: Yes Plan: Has had A. fib for a long time per patient however denies ever being put on full strength blood thinner; unclear why this is as his chads 2 vascular score is clearly high enough to necessitate a NOAC or Coumadin Plan to start Eliquis prior to discharge; will need general surgery to clear us for this when appropriate Rate controlled (3) Diabetic foot ulcer with osteomyelitis Is this a current diagnosis for this admission?: Yes (4) Diabetic foot ulcer associated with type 2 diabetes mellitus Qualifiers: Diabetic foot ulcer location: midfoot Laterality: left Is this a current diagnosis for this admission?: Yes (5) Diabetic neuropathy Is this a current diagnosis for this admission?: Yes (6) T2DM (type 2 diabetes mellitus) Qualifiers: Diabetes mellitus fci insulin use: with fci use Diabetes mellitus complication status: with circulatory complication Diabetes mellitus complication detail: with peripheral angiopathy with gangrene Qualified Code(s): E11.52 - Type 2 diabetes mellitus with diabetic peripheral angiopathy with gangrene; Z79.4 - wellness coordinator (current) use of insulin Is this a current diagnosis for this admission?: Yes (7) HTN (hypertension) Is this a current diagnosis for this admission?: Yes (8) HLD (hyperlipidemia) Is this a current diagnosis for this admission?: Yes (9) PAD (peripheral artery disease) Is this a current diagnosis for this admission?: Yes - Time Time Spent with patient: 25-34 minutes Medications reviewed and adjusted accordingly: Yes - Inpatient Certification Medical Necessity: Need Close Monitoring Due to Risk of Patient Decompensation, Need for IV Antibiotics, Need for Surgery
[2019-10-16] MEDS ORDERED: LORAZEPAM INJ 2 MG/1 ML VIAL ONE (18:31)
[2019-10-16] MEDS: METOPROLOL TARTRATE 50 MG TABLET PO SCH (21:25)
[2019-10-16] MEDS: MORPHINE SULFATE 10 MG/ML INJ IV PRN (22:10)
[2019-10-16] MEDS: ACETAMINOPHEN 325 MG TABLET PO PRN (23:34)
[2019-10-17] MEDS: OXYCODONE-ACETAMINOPHEN 5-325 MG TABLET PO PRN ×4 (03:39→20:47)
[2019-10-17] MEDS: ACETAMINOPHEN 325 MG TABLET PO PRN ×2 (05:37→09:37)
[2019-10-17] MEDS: HEPARIN SOD (PORCINE) 5,000 UNIT/ML 1 ML VIAL SUBCUT SCH ×3 (05:37→21:00)
[2019-10-17] MEDS: CEFEPIME 2 GM/D5W RTU 2 GM/50 ML RTUPB IV SCH (05:37)
[2019-10-17] MEDS: INSULIN LISPRO 100 UNIT/ML 3 ML VIAL SUBCUT SCH ×4 (08:24→21:01)
[2019-10-17] MEDS: HUM INSULIN NPH/REG INSULIN HM 100 UNIT/1 ML 3 ML SUBCUT SCH ×2 (08:25→16:18)
[2019-10-17] MEDS: MORPHINE SULFATE 10 MG/ML INJ IV PRN (09:31)
[2019-10-17] MEDS: LISINOPRIL 10 MG TABLET PO SCH (09:31)
[2019-10-17] MEDS: METOPROLOL TARTRATE 50 MG TABLET PO SCH ×2 (09:32→21:00)
[2019-10-17] MEDS: DOCUSATE SODIUM 100 MG CAPSULE PO SCH (09:32)
[2019-10-17 10:15] LABS: ABSOLUTE BASOPHILS # (AUTO) 0.1 10^3/uL (0.0-0.2); BASOPHILS % (AUTO) 0.4 % (0-2); EOSINOPHILS % (AUTO) 0.1 % (0-6); TOTAL CELLS COUNTED % (AUTO) 100 %
[2019-10-17 10:24] LABS: ABSOLUTE LYMPHOCYTES (AUTO) 0.9 10^3/uL (0.5-4.7); ABSOLUTE NEUT (AUTO) 11.5 10^3/uL (1.7-8.2); HEMATOCRIT 41.8 % (37.9-51.0); HEMOGLOBIN 13.9 g/dL (13.5-17.0); LYMPHOCYTES % (AUTO) 6.4 % (13-45); MEAN CORPUSCULAR HEMOGLOBIN 29.7 pg (27.0-33.4); MEAN CORPUSCULAR HGB CONC 33.3 g/dL (32.0-36.0); MEAN CORPUSCULAR VOLUME 89 fl (80-97); MONOCYTES % (AUTO) 7.8 % (3-13); PLATELET COUNT 321 10^3/uL (150-450); RED BLOOD COUNT 4.69 10^6/uL (4.35-5.55); RED CELL DISTRIBUTION WIDTH 14.1 % (11.5-14.0); SEGMENTED NEUTROPHILS % (AUTO) 85.3 % (42-78); WHITE BLOOD COUNT 13.5 10^3/uL (4.0-10.5)
[2019-10-17 10:41] LABS: VANCOMYCIN,TROUGH 10.5 ug/mL (5.0-20.0)
[2019-10-17] MEDS: VANCOMYCIN HCL 1,250 MG in DEXTROSE 5%-WATER 250 ML IV SCH (11:02)
[2019-10-17] MEDS: CEFEPIME HCL 2 GM in DEXTROSE 5%-WATER 50 ML IV SCH ×2 (13:56→21:00)
[2019-10-17] MEDS ORDERED: MORPHINE SULFATE 10 MG/ML INJ IV PRN (14:26)
[2019-10-17] MEDS ORDERED: IBUPROFEN 800 MG TABLET PO SCH (17:00)
[2019-10-17] MEDS: VANCOMYCIN HCL 1,000 MG in DEXTROSE 5%-WATER 250 ML IV SCH (17:39)
[2019-10-17] MEDS ORDERED: IBUPROFEN 800 MG TABLET PO PRN (18:08)
--- NOTE | 2019-10-17 18:09 | PDOC PROGRESS REPORT ---
Subjective Progress Note for:: 10/17/19 Subjective:: Patient is a 64-year-old white male who presented with diabetic left foot ulcer which developed into osteomyelitis, sent by his elephant tamer office for admission and surgical evaluation. General surgeon consulted on admission by ED and arranged left BKA. Patient states he has been essentially asymptomatic throughout all of this other than chronic neuropathic pain which is not significantly worse on admission. 10/17: Status post left BKA, per patient surgery went well and he did not have complications. He did have some postop delirium which resolved soon afterwards. He is fully alert and oriented today. His pain is well controlled. Wound culture is growing gram-negative rods. He has no new complaints. Of note, patient now admits he has chronic A. fib which was seen on EKG. He states he has never been on a full strength blood thinner, only taking aspirin and Plavix at home prior to admission. His chads 2 Vasc score is clearly high enough to warrant full-strength anticoagulant. When surgery clears patient, we will need to start Eliquis and restart his aspirin. Plan to hold Plavix at discharge. His PCP, braille and talking books clerk, and his vascular surgeons can discuss if they would like to change this regimen in the future. His peripheral artery disease complicates the choice of anticoagulant and antiplatelet combination. Reason For Visit: OSTEOMYELITIS OF LEFT FOOT Physical Exam Vital Signs: Temp Pulse Resp BP Pulse Ox 99.7 F 108 H 16 139/81 H 100 10/17/19 11:26 10/17/19 11:26 10/17/19 11:26 10/17/19 11:26 10/17/19 11:26 Intake & Output 10/16/19 10/17/19 10/18/19 06:59 06:59 06:59 Intake Total 300 1400 300 Output Total 500 225 Balance -200 1175 300 Weight 84.4 kg 84.6 kg General appearance: PRESENT: no acute distress, well-developed, well-nourished Head exam: PRESENT: atraumatic, normocephalic Eye exam: PRESENT: conjunctiva pink Mouth exam: PRESENT: moist Respiratory exam: PRESENT: clear to auscultation emma. ABSENT: rales, rhonchi, wheezes Cardiovascular exam: PRESENT: RRR. ABSENT: diastolic murmur, rubs, systolic murmur GI/Abdominal exam: PRESENT: normal bowel sounds, soft. ABSENT: distended, guarding, mass, organolmegaly, rebound, tenderness Extremities exam: PRESENT: other - LLE status post BKA, rather tender but healing, no significant bleeding or drainage on bandages Neurological exam: PRESENT: alert, awake Psychiatric exam: PRESENT: appropriate affect, normal mood Skin exam: PRESENT: dry, intact, warm Results Laboratory Results: 10/17/19 10:06 10/15/19 22:20 10/17/19 10:06 WBC 13.5 H RBC 4.69 Hgb 13.9 Hct 41.8 MCV 89 MCH 29.7 MCHC 33.3 RDW 14.1 H Plt Count 321 Seg Neutrophils % 85.3 H 10/15/19 16:45 Foot - Left Gram Stain - Final Impressions: Foot X-Ray 10/15/19 11:17 IMPRESSION: 1. WORSENING DEMINERALIZATION IN THE RIGHT FOOT. STABLE SURGICAL CHANGES AND CHRONIC FINDINGS. 2. WORSENING DEMINERALIZATION IN THE LEFT FOOT. STABLE SURGICAL CHANGES AND CHRONIC FINDINGS. THE PROXIMAL PHALANX OF THE 2ND TOE IS NO LONGER PRESENT. NO HISTORY AVAILABLE TO WHETHER THIS IS DUE TO SURGERY. IF THIS IS NOT RELATED TO PRIOR SURGERY, THEN THIS WOULD BE INDICATIVE OF DESTRUCTION SECONDARY TO OSTEOMYELITIS. THERE IS ALSO SOFT TISSUE SWELLING AND GAS IN THE SOFT TISSUES ADJACENT TO THE HEAD OF THE 2ND METATARSAL CONSISTENT WITH SOFT TISSUE INFECTION. Chest X-Ray 10/16/19 07:36 IMPRESSION: Cardiomegaly and low inspiratory lung volumes without a superimposed acute cardiopulmonary process. Assessment and Plan - Diagnosis (1) Osteomyelitis of left foot Qualifiers: Osteomyelitis type: other acute Qualified Code(s): M86.172 - Other acute osteomyelitis, left ankle and foot Is this a current diagnosis for this admission?: Yes Plan: Sent to ED by elephant tamer Dr. Garay General surgery consulted by ED, planning BKA of left foot Vancomycin/cefepime IV started on admission Follow-up any wound cultures obtained from OR Needs follow-up with wound care outpatient Pain management OR for BKA 10/16 by general surgery, tolerated well; had some postop delirium which promptly resolved overnight Held aspirin and clopidogrel per surgery; restart when surgery agrees however plan to not restart clopidogrel and instead start NOAC for A. fib Needs prosthetics to evaluate patient PT/OT (2) Chronic a-fib Is this a current diagnosis for this admission?: Yes Plan: Has had A. fib for a long time per patient however denies ever being put on full strength blood thinner; unclear why this is as his chads 2 vascular score is clearly high enough to necessitate a NOAC or Coumadin Plan to start Eliquis prior to discharge; will need general surgery to clear us for this when appropriate Rate controlled (3) Diabetic foot ulcer with osteomyelitis Is this a current diagnosis for this admission?: Yes (4) Diabetic foot ulcer associated with type 2 diabetes mellitus Qualifiers: Diabetic foot ulcer location: midfoot Laterality: left Is this a current diagnosis for this admission?: Yes (5) Diabetic neuropathy Is this a current diagnosis for this admission?: Yes (6) T2DM (type 2 diabetes mellitus) Qualifiers: Diabetes mellitus contracts manager insulin use: with fdc use Diabetes mellitus complication status: with circulatory complication Diabetes mellitus complication detail: with peripheral angiopathy with gangrene Qualified Code(s): E11.52 - Type 2 diabetes mellitus with diabetic peripheral angiopathy with gangrene; Z79.4 - FPC (current) use of insulin Is this a current diagnosis for this admission?: Yes (7) HTN (hypertension) Is this a current diagnosis for this admission?: Yes (8) HLD (hyperlipidemia) Is this a current diagnosis for this admission?: Yes (9) PAD (peripheral artery disease) Is this a current diagnosis for this admission?: Yes Plan: Per patient, status post bypass and left lower extremity, followed by vascular surgery outpatient Restarted home aspirin - Time Time Spent with patient: 15-24 minutes Medications reviewed and adjusted accordingly: Yes - Inpatient Certification Medical Necessity: Significant Comorbidiites Make Outpatient Treatment Too Risky, Need Close Monitoring Due to Risk of Patient Decompensation, Need for IV Antibiotics
--- NOTE | 2019-10-17 20:56 | PDOC PROGRESS REPORT ---
Subjective Progress Note for:: 10/17/19 Reason For Visit: OSTEOMYELITIS OF LEFT FOOT Physical Exam Vital Signs: Temp Pulse Resp BP Pulse Ox 98.1 F 87 16 100/72 100 10/17/19 20:00 10/17/19 20:00 10/17/19 20:00 10/17/19 20:00 10/17/19 20:00 Intake & Output 10/16/19 10/17/19 10/18/19 06:59 06:59 06:59 Intake Total 300 1400 1290 Output Total 500 225 575 Balance -200 1175 715 Weight 84.4 kg 84.6 kg Results Laboratory Results: 10/17/19 10:06 10/15/19 22:20 10/17/19 10:06 WBC 13.5 H RBC 4.69 Hgb 13.9 Hct 41.8 MCV 89 MCH 29.7 MCHC 33.3 RDW 14.1 H Plt Count 321 Seg Neutrophils % 85.3 H 10/15/19 16:45 Foot - Left Gram Stain - Final Impressions: Foot X-Ray 10/15/19 11:17 IMPRESSION: 1. WORSENING DEMINERALIZATION IN THE RIGHT FOOT. STABLE SURGICAL CHANGES AND CHRONIC FINDINGS. 2. WORSENING DEMINERALIZATION IN THE LEFT FOOT. STABLE SURGICAL CHANGES AND CHRONIC FINDINGS. THE PROXIMAL PHALANX OF THE 2ND TOE IS NO LONGER PRESENT. NO HISTORY AVAILABLE TO WHETHER THIS IS DUE TO SURGERY. IF THIS IS NOT RELATED TO PRIOR SURGERY, THEN THIS WOULD BE INDICATIVE OF DESTRUCTION SECONDARY TO OSTEOMYELITIS. THERE IS ALSO SOFT TISSUE SWELLING AND GAS IN THE SOFT TISSUES ADJACENT TO THE HEAD OF THE 2ND METATARSAL CONSISTENT WITH SOFT TISSUE INFECTION. Chest X-Ray 10/16/19 07:36 IMPRESSION: Cardiomegaly and low inspiratory lung volumes without a superimposed acute cardiopulmonary process. Assessment & Plan - Diagnosis (1) Abscess of left foot Is this a current diagnosis for this admission?: Yes (2) Diabetic foot ulcer associated with type 2 diabetes mellitus Qualifiers: Diabetic foot ulcer location: midfoot Laterality: left Is this a current diagnosis for this admission?: Yes - Time Time Spent with patient: Less than 15 minutes - Plan Summary Plan Summary: This is a 64-year-old male status post below-knee amputation. He is doing relatively well today. He still has his Marquez in place, and he complains of pain in his leg. I will increase his oxycodone and breakthrough morphine. I will add gabapentin for neuropathic pain relief. Discontinue Marquez. Consult p hysical therapy. I will continue to follow this patient closely with you. Plan to unwrap the stump and examine the wound in 24 to 48 hours.
[2019-10-17] MEDS: GABAPENTIN 300 MG CAPSULE PO SCH (21:01)
[2019-10-18] MEDS: VANCOMYCIN HCL 1,000 MG in DEXTROSE 5%-WATER 250 ML IV SCH ×3 (01:08→18:13)
[2019-10-18] MEDS: CEFEPIME HCL 2 GM in DEXTROSE 5%-WATER 50 ML IV SCH ×3 (05:50→21:57)
[2019-10-18] MEDS: HEPARIN SOD (PORCINE) 5,000 UNIT/ML 1 ML VIAL SUBCUT SCH ×3 (05:50→21:58)
[2019-10-18] MEDS: GABAPENTIN 300 MG CAPSULE PO SCH ×3 (05:51→21:58)
[2019-10-18] MEDS: INSULIN LISPRO 100 UNIT/ML 3 ML VIAL SUBCUT SCH ×4 (10:29→21:58)
[2019-10-18] MEDS: HUM INSULIN NPH/REG INSULIN HM 100 UNIT/1 ML 3 ML SUBCUT SCH ×2 (10:30→18:15)
[2019-10-18] MEDS: DOCUSATE SODIUM 100 MG CAPSULE PO SCH (10:30)
[2019-10-18] MEDS: ASPIRIN 81 MG TABLET, CHEWABLE PO SCH (10:30)
[2019-10-18] MEDS: METOPROLOL TARTRATE 50 MG TABLET PO SCH ×2 (10:31→21:58)
[2019-10-18] MEDS: OXYCODONE-ACETAMINOPHEN 5-325 MG TABLET PO PRN ×3 (10:31→22:08)
[2019-10-18] MEDS: LISINOPRIL 10 MG TABLET PO SCH (10:31)
--- NOTE | 2019-10-18 15:35 | PDOC PROGRESS REPORT ---
Subjective Progress Note for:: 10/18/19 Subjective:: Patient is a 64-year-old white male who presented with diabetic left foot ulcer which developed into osteomyelitis, sent by his bag presser office for admission and surgical evaluation. General surgeon consulted on admission by ED and arranged left BKA. Patient states he has been essentially asymptomatic throughout all of this other than chronic neuropathic pain which is not significantly worse on admission. 10/17: Status post left BKA, per patient surgery went well and he did not have complications. He did have some postop delirium which resolved soon afterwards. He is fully alert and oriented today. His pain is well controlled. Wound culture is growing gram-negative rods. He has no new complaints. Of note, patient now admits he has chronic A. fib which was seen on EKG. He states he has never been on a full strength blood thinner, only taking aspirin and Plavix at home prior to admission. His chads 2 Vasc score is clearly high enough to warrant full-strength anticoagulant. When surgery clears patient, we will need to start Eliquis and restart his aspirin. Plan to hold Plavix at discharge. His PCP, process designer, and his vascular surgeons can discuss if they would like to change this regimen in the future. His peripheral artery disease complicates the choice of anticoagulant and antiplatelet combination. 10/18: Patient doing well overall, pain appears well controlled. Wound cultures are growing E. coli and Klebsiella pneumoniae. Expect we can discontinue vancomycin soon. Patient needs to see prosthetics either in hospital or soon after discharge. Patient has no new complaints otherwise. Plan to start him on Eliquis when surgery is in agreement it is safe to do so. Aspirin has been restarted. Plan to not restart Plavix due to high bleeding risk of triple therapy. Reason For Visit: OSTEOMYELITIS OF LEFT FOOT Physical Exam Vital Signs: Temp Pulse Resp BP Pulse Ox 99.7 F 75 15 118/76 99 10/18/19 12:05 10/18/19 12:05 10/18/19 12:05 10/18/19 12:05 10/18/19 12:05 Intake & Output 10/17/19 10/18/19 10/19/19 06:59 06:59 06:59 Intake Total 1400 2140 740 Output Total 225 1775 900 Balance 1175 365 -160 Weight 84.6 kg 84.4 kg General appearance: PRESENT: no acute distress, well-developed, well-nourished Head exam: PRESENT: atraumatic, normocephalic Eye exam: PRESENT: conjunctiva pink. ABSENT: scleral icterus Mouth exam: PRESENT: moist Respiratory exam: PRESENT: clear to auscultation emma. ABSENT: rales, rhonchi, wheezes Cardiovascular exam: PRESENT: RRR. ABSENT: diastolic murmur, rubs, systolic murmur GI/Abdominal exam: PRESENT: normal bowel sounds, soft. ABSENT: distended, guarding, mass, organolmegaly, rebound, tenderness Extremities exam: PRESENT: other - Left stump healing, minimal drainage on bandages; right foot wounds still appear necrotic but not as severe as left foot prior to amputation Neurological exam: PRESENT: alert, awake Psychiatric exam: PRESENT: appropriate affect, normal mood Skin exam: PRESENT: dry, warm Results Laboratory Results: 10/17/19 10:06 10/15/19 22:20 10/15/19 16:45 Foot - Left Gram Stain - Final Impressions: Foot X-Ray 10/15/19 11:17 IMPRESSION: 1. WORSENING DEMINERALIZATION IN THE RIGHT FOOT. STABLE SURGICAL CHANGES AND CHRONIC FINDINGS. 2. WORSENING DEMINERALIZATION IN THE LEFT FOOT. STABLE SURGICAL CHANGES AND CHRONIC FINDINGS. THE PROXIMAL PHALANX OF THE 2ND TOE IS NO LONGER PRESENT. NO HISTORY AVAILABLE TO WHETHER THIS IS DUE TO SURGERY. IF THIS IS NOT RELATED TO PRIOR SURGERY, THEN THIS WOULD BE INDICATIVE OF DESTRUCTION SECONDARY TO OSTEOMYELITIS. THERE IS ALSO SOFT TISSUE SWELLING AND GAS IN THE SOFT TISSUES ADJACENT TO THE HEAD OF THE 2ND METATARSAL CONSISTENT WITH SOFT TISSUE INFECTION. Chest X-Ray 10/16/19 07:36 IMPRESSION: Cardiomegaly and low inspiratory lung volumes without a superimposed acute cardiopulmonary process. Assessment and Plan - Diagnosis (1) Osteomyelitis of left foot Qualifiers: Osteomyelitis type: other acute Qualified Code(s): M86.172 - Other acute osteomyelitis, left ankle and foot Is this a current diagnosis for this admission?: Yes Plan: Sent to ED by bag presser Dr. Garay General surgery consulted by ED, planning BKA of left foot Vancomycin/cefepime IV started on admission Follow-up any wound cultures obtained from OR Needs follow-up with wound care outpatient Pain management OR for BKA 10/16 by general surgery, tolerated well; had some postop delirium which promptly resolved overnight Held aspirin and clopidogrel per surgery; restart when surgery agrees however plan to not restart clopidogrel and instead start NOAC for A. fib Needs prosthetics to evaluate patient PT/OT Will need surgery to evaluate the right foot as well given it is in very poor shape and may need amputation as well. Wound care per surgery (2) Chronic a-fib Is this a current diagnosis for this admission?: Yes Plan: Has had A. fib for a long time per patient however denies ever being put on full strength blood thinner; unclear why this is as his chads 2 vascular score is clearly high enough to necessitate a NOAC or Coumadin Plan to start Eliquis prior to discharge; will need general surgery to clear us for this when appropriate Rate controlled (3) Diabetic foot ulcer with osteomyelitis Is this a current diagnosis for this admission?: Yes (4) Diabetic foot ulcer associated with type 2 diabetes mellitus Qualifiers: Diabetic foot ulcer location: midfoot Laterality: left Is this a current diagnosis for this admission?: Yes (5) Diabetic neuropathy Is this a current diagnosis for this admission?: Yes (6) T2DM (type 2 diabetes mellitus) Qualifiers: Diabetes mellitus exterminator termite insulin use: with half-way use Diabetes mellitus complication status: with circulatory complication Diabetes mellitus complication detail: with peripheral angiopathy with gangrene Qualified Code(s): E11.52 - Type 2 diabetes mellitus with diabetic peripheral angiopathy with gangrene; Z79.4 - snf (current) use of insulin Is this a current diagnosis for this admission?: Yes (7) HTN (hypertension) Is this a current diagnosis for this admission?: Yes (8) HLD (hyperlipidemia) Is this a current diagnosis for this admission?: Yes (9) PAD (peripheral artery disease) Is this a current diagnosis for this admission?: Yes - Time Time Spent with patient: 15-24 minutes Medications reviewed and adjusted accordingly: Yes - Inpatient Certification Medical Necessity: Significant Comorbidiites Make Outpatient Treatment Too Risky, Need for IV Antibiotics
--- NOTE | 2019-10-18 17:09 | PDOC PROGRESS REPORT ---
Subjective Progress Note for:: 10/18/19 Reason For Visit: OSTEOMYELITIS OF LEFT FOOT Physical Exam Vital Signs: Temp Pulse Resp BP Pulse Ox 98.2 F 85 18 116/75 100 10/18/19 15:38 10/18/19 15:38 10/18/19 15:38 10/18/19 15:38 10/18/19 15:38 Intake & Output 10/17/19 10/18/19 10/19/19 06:59 06:59 06:59 Intake Total 1400 2140 740 Output Total 225 1775 900 Balance 1175 365 -160 Weight 84.6 kg 84.4 kg Results Laboratory Results: 10/17/19 10:06 10/15/19 22:20 10/15/19 16:45 Foot - Left Gram Stain - Final Impressions: Foot X-Ray 10/15/19 11:17 IMPRESSION: 1. WORSENING DEMINERALIZATION IN THE RIGHT FOOT. STABLE SURGICAL CHANGES AND CHRONIC FINDINGS. 2. WORSENING DEMINERALIZATION IN THE LEFT FOOT. STABLE SURGICAL CHANGES AND CHRONIC FINDINGS. THE PROXIMAL PHALANX OF THE 2ND TOE IS NO LONGER PRESENT. NO HISTORY AVAILABLE TO WHETHER THIS IS DUE TO SURGERY. IF THIS IS NOT RELATED TO PRIOR SURGERY, THEN THIS WOULD BE INDICATIVE OF DESTRUCTION SECONDARY TO OSTEOMYELITIS. THERE IS ALSO SOFT TISSUE SWELLING AND GAS IN THE SOFT TISSUES ADJACENT TO THE HEAD OF THE 2ND METATARSAL CONSISTENT WITH SOFT TISSUE INFECTION. Chest X-Ray 10/16/19 07:36 IMPRESSION: Cardiomegaly and low inspiratory lung volumes without a superimposed acute cardiopulmonary process. Assessment & Plan - Diagnosis (1) Abscess of left foot Is this a current diagnosis for this admission?: Yes (2) Diabetic foot ulcer associated with type 2 diabetes mellitus Qualifiers: Diabetic foot ulcer location: midfoot Laterality: left Is this a current diagnosis for this admission?: Yes - Time Time Spent with patient: Less than 15 minutes - Plan Summary Plan Summary: This is a 64-year-old male status post below-knee amputation. The patient is doing reasonably well today. His dressing is clean, dry, and intact. He is moving the leg without significant difficulty or pain. He reports that the Neurontin is not causing excessive drowsiness. Continue current pain med ication, continue Neurontin. Continue with physical therapy. Patient will be referred to a exceptional needs teacher as an outpatient. Okay to restart anticoagulation. Will follow.
[2019-10-19] MEDS: VANCOMYCIN HCL 1,000 MG in DEXTROSE 5%-WATER 250 ML IV SCH ×2 (02:31→10:45)
[2019-10-19] MEDS: CEFEPIME HCL 2 GM in DEXTROSE 5%-WATER 50 ML IV SCH ×3 (05:31→21:45)
[2019-10-19] MEDS: OXYCODONE-ACETAMINOPHEN 5-325 MG TABLET PO PRN ×4 (05:31→20:12)
[2019-10-19] MEDS: GABAPENTIN 300 MG CAPSULE PO SCH ×3 (05:31→21:46)
[2019-10-19] MEDS: HEPARIN SOD (PORCINE) 5,000 UNIT/ML 1 ML VIAL SUBCUT SCH ×2 (05:31→14:44)
[2019-10-19] MEDS: INSULIN LISPRO 100 UNIT/ML 3 ML VIAL SUBCUT SCH ×4 (08:45→21:45)
[2019-10-19] MEDS: HUM INSULIN NPH/REG INSULIN HM 100 UNIT/1 ML 3 ML SUBCUT SCH ×2 (08:45→16:47)
[2019-10-19] MEDS: DOCUSATE SODIUM 100 MG CAPSULE PO SCH (10:03)
[2019-10-19] MEDS: ASPIRIN 81 MG TABLET, CHEWABLE PO SCH (10:04)
[2019-10-19] MEDS: LISINOPRIL 10 MG TABLET PO SCH (10:04)
[2019-10-19] MEDS: METOPROLOL TARTRATE 50 MG TABLET PO SCH ×2 (10:04→21:46)
[2019-10-19 10:49] LABS: HEMATOCRIT 38.4 % (37.9-51.0); MEAN CORPUSCULAR HEMOGLOBIN 30.1 pg (27.0-33.4); MEAN CORPUSCULAR VOLUME 89 fl (80-97); PLATELET COUNT 294 10^3/uL (150-450); RED BLOOD COUNT 4.34 10^6/uL (4.35-5.55); RED CELL DISTRIBUTION WIDTH 14.3 % (11.5-14.0); WHITE BLOOD COUNT 10.8 10^3/uL (4.0-10.5)
--- NOTE | 2019-10-19 11:04 | PDOC PROGRESS REPORT ---
Subjective Progress Note for:: 10/19/19 Reason For Visit: OSTEOMYELITIS OF LEFT FOOT No specific complaints this morning Physical Exam Vital Signs: Temp Pulse Resp BP Pulse Ox 98.3 F 53 L 18 138/92 H 100 10/19/19 08:00 10/19/19 08:00 10/19/19 08:00 10/19/19 08:00 10/19/19 08:00 Intake & Output 10/18/19 10/19/19 10/20/19 06:59 06:59 06:59 Intake Total 2140 3880 Output Total 1775 3675 Balance 365 205 Weight 84.4 kg 84.4 kg General appearance: PRESENT: no acute distress Musculoskeletal exam: PRESENT: other - Left of the knee amputation site dressing removed. [place] and sutures intact. Flaps appear viable, no bruising foul smell cellulitis etc. Results Laboratory Results: 10/19/19 10:20 Seg Neutrophils % Not Reportable 10/15/19 16:45 Foot - Left Gram Stain - Final 10/15/19 16:45 Foot - Left Wound Culture - Final Pseudom Fluoresc/[place] Group Enterococcus Faecalis(Group D) Mrsa (Meth Resis Staph Aureus) Skin Jesenia Impressions: Foot X-Ray 10/15/19 11:17 IMPRESSION: 1. WORSENING DEMINERALIZATION IN THE RIGHT FOOT. STABLE SURGICAL CHANGES AND CHRONIC FINDINGS. 2. WORSENING DEMINERALIZATION IN THE LEFT FOOT. STABLE SURGICAL CHANGES AND CHRONIC FINDINGS. THE PROXIMAL PHALANX OF THE 2ND TOE IS NO LONGER PRESENT. NO HISTORY AVAILABLE TO WHETHER THIS IS DUE TO SURGERY. IF THIS IS NOT RELATED TO PRIOR SURGERY, THEN THIS WOULD BE INDICATIVE OF DESTRUCTION SECONDARY TO OSTEOMYELITIS. THERE IS ALSO SOFT TISSUE SWELLING AND GAS IN THE SOFT TISSUES ADJACENT TO THE HEAD OF THE 2ND METATARSAL CONSISTENT WITH SOFT TISSUE INFECTION. Chest X-Ray 10/16/19 07:36 IMPRESSION: Cardiomegaly and low inspiratory lung volumes without a superimposed acute cardiopulmonary process. Assessment & Plan - Diagnosis (1) Osteomyelitis of left foot Qualifiers: Osteomyelitis type: other acute Qualified Code(s): M86.172 - Other acute osteomyelitis, left ankle and foot Is this a current diagnosis for this admission?: Yes (2) Abscess of left foot Is this a current diagnosis for this admission?: Yes Plan: Impression: Postoperative day 3 status post left below the knee amputation, operatively closed, doing well no complications Recommendations 1. We will have nursing services provide local wound care 2. Physical therapy consulted; suspect patient may require short-term SNF stay 3. Patient can follow-up with [facility] in 2 weeks for consideration of progressive suture and staple removal. 4. We will sign off; reconsult surgery if clinically indicated - Time Time Spent with patient: 15-24 minutes
[2019-10-19 11:15] LABS: ANION GAP 10 (5-19); BLOOD UREA NITROGEN 14 mg/dL (7-20); CALCIUM 8.8 mg/dL (8.4-10.2); CARBON DIOXIDE 26 mmol/L (22-30); CHLORIDE 101 mmol/L (98-107); GLUCOSE 144 mg/dL (75-110); POTASSIUM 4.1 mmol/L (3.6-5.0)
[2019-10-19 11:20] LABS: VANCOMYCIN,TROUGH 27.1 ug/mL (5.0-20.0)
[2019-10-19 11:36] LABS: ABSOLUTE LYMPHOCYTES# (MANUAL) 1.9 10^3/uL (0.5-4.7); ABSOLUTE MONOCYTES # (MANUAL) 1.5 10^3/uL (0.1-1.4); BASOPHILS % (MANUAL) 0 % (0-2); EOSINOPHILS % (MANUAL) 2 % (0-6); LYMPHOCYTES % (MANUAL) 16 % (13-45); MONOCYTES % (MANUAL) 14 % (3-13); SEGMENTED NEUTROPHILS % (MAN) 66 % (42-78); TOTAL CELLS COUNTED 100
[2019-10-19 11:38] LABS: ANISOCYTOSIS SLIGHT
[2019-10-19 11:40] LABS: PLATELET COMMENT ADEQUATE
--- NOTE | 2019-10-19 17:54 | PDOC PROGRESS REPORT ---
Subjective Progress Note for:: 10/19/19 Subjective:: CATHERINE LEROY II is a 64 year old male who presents after 5 days of progressive left diabetic foot ulcer wound progression who was admitted 10/15/19 for Osteomyelitis; now POD #4 left BKA. Patient was seen on morning rounds. He is found resting in bed, comfortably, on room air. He reports that his pain is well controlled with gabapentin and has required very little oxycodone for breakthrough. He is hopeful to discharge to home with home health services. He denies fever, chills, chest pain, palpitations, dyspnea, orthopnea, abdominal pain, nausea vomiting and diarrhea. He has no other questions or concerns at this time. No concerns per nursing. Reason For Visit: OSTEOMYELITIS OF LEFT FOOT Physical Exam Vital Signs: Temp Pulse Resp BP Pulse Ox 98.3 F 84 16 131/85 H 100 10/19/19 15:48 10/19/19 15:48 10/19/19 15:48 10/19/19 15:48 10/19/19 15:48 Intake & Output 10/18/19 10/19/19 10/20/19 06:59 06:59 06:59 Intake Total 2140 3880 Output Total 1775 3675 Balance 365 205 Weight 84.4 kg 84.4 kg 84.4 kg General appearance: PRESENT: no acute distress, cooperative, well-developed, well-nourished Head exam: PRESENT: atraumatic, normocephalic Eye exam: PRESENT: conjunctiva pink, EOMI, PERRLA. ABSENT: scleral icterus Ear exam: PRESENT: normal external ear exam Mouth exam: PRESENT: moist, tongue midline Teeth exam: PRESENT: poor dentation Respiratory exam: PRESENT: clear to auscultation emma, symmetrical, unlabored. ABSENT: rales, rhonchi, wheezes Cardiovascular exam: PRESENT: RRR. ABSENT: diastolic murmur, rubs, systolic murmur Pulses: PRESENT: normal dorsalis pedis pul Vascular exam: PRESENT: normal capillary refill GI/Abdominal exam: PRESENT: normal bowel sounds, soft. ABSENT: distended, guarding, mass, organolmegaly, rebound, tenderness Rectal exam: PRESENT: deferred Extremities exam: PRESENT: full ROM, other - Left BKA. ABSENT: calf tenderness, clubbing, pedal edema Neurological exam: PRESENT: alert, awake, oriented to person, oriented to place, oriented to time, oriented to situation, CN II-XII grossly intact. ABSENT: motor sensory deficit Psychiatric exam: PRESENT: appropriate affect, normal mood. ABSENT: homicidal ideation, suicidal ideation Skin exam: PRESENT: dry, warm, other - Chronic foot wound to right medial great toe; packing in place (wound bed not visualized). +1 edema, slight erythema.. ABSENT: cyanosis, intact, rash Results Laboratory Results: 10/19/19 10:20 10/19/19 10:20 10/19/19 10/19/19 10:20 10:20 WBC 10.8 H RBC 4.34 L Hgb 13.0 L Hct 38.4 MCV 89 MCH 30.1 MCHC 34.0 RDW 14.3 H Plt Count 294 Seg Neutrophils % Not Reportable Sodium 137.0 Potassium 4.1 Chloride 101 Carbon Dioxide 26 Anion Gap 10 BUN 14 Creatinine 0.63 Est GFR ( Amer) > 60 Glucose 144 H Calcium 8.8 10/15/19 16:45 Foot - Left Gram Stain - Final 10/15/19 16:45 Foot - Left Wound Culture - Final Pseudom Fluoresc/[place] Group Enterococcus Faecalis(Group D) Mrsa (Meth Resis Staph Aureus) Skin Jesenia Impressions: Foot X-Ray 10/15/19 11:17 IMPRESSION: 1. WORSENING DEMINERALIZATION IN THE RIGHT FOOT. STABLE SURGICAL CHANGES AND CHRONIC FINDINGS. 2. WORSENING DEMINERALIZATION IN THE LEFT FOOT. STABLE SURGICAL CHANGES AND CHRONIC FINDINGS. THE PROXIMAL PHALANX OF THE 2ND TOE IS NO LONGER PRESENT. NO HISTORY AVAILABLE TO WHETHER THIS IS DUE TO SURGERY. IF THIS IS NOT RELATED TO PRIOR SURGERY, THEN THIS WOULD BE INDICATIVE OF DESTRUCTION SECONDARY TO OSTEOMYELITIS. THERE IS ALSO SOFT TISSUE SWELLING AND GAS IN THE SOFT TISSUES ADJACENT TO THE HEAD OF THE 2ND METATARSAL CONSISTENT WITH SOFT TISSUE INFECTION. Chest X-Ray 10/16/19 07:36 IMPRESSION: Cardiomegaly and low inspiratory lung volumes without a superimposed acute cardiopulmonary process. Assessment and Plan - Diagnosis (1) Osteomyelitis of left foot Qualifiers: Osteomyelitis type: other acute Qualified Code(s): M86.172 - Other acute osteomyelitis, left ankle and foot Is this a current diagnosis for this admission?: Yes Plan: Now postop day #4 left BKA. Sent to ED by tourist agent Dr. Garay Surgery is consulted; have since signed off. Patient to follow-up in the [facility] in [address] Presley; no indications for continued antibiotics per surgery's perspective. We will discontinue vancomycin today. Discontinue cefepime tomorrow if WBCs continue to trend down, no evidence of developing cellulitis, or fever. Continue analgesics as needed. Physical therapy consultation. Discharge planning consulted. (2) Chronic a-fib Is this a current diagnosis for this admission?: Yes Plan: Has had A. fib for a long time per patient however denies ever being put on full strength blood thinner; unclear why this is as his chads 2 vascular score is clearly high enough to necessitate a NOAC or Coumadin Surgery has cleared for start of chronic anticoagulation. Will ask discharge planning to assist with cost of Eliquis. Rate controlled on home dose metoprolol (3) Diabetic neuropathy Is this a current diagnosis for this admission?: Yes Plan: Continue gabapentin 300 mg every 8 hours. Continue Tylenol and Motrin as needed. Oxycodone for breakthrough pain. (4) HTN (hypertension) Is this a current diagnosis for this admission?: Yes Plan: Acceptable blood pressures on Metoprolol 50 mg every 12 hours and lisinopril 40 mg daily. IV hydralazine as needed for blood pressure control. Consistent carb/cardiac diet. (5) PAD (peripheral artery disease) Is this a current diagnosis for this admission?: Yes Plan: Per patient, status post bypass and left lower extremity, followed by vascular surgery outpatient Restarted home aspirin Started on Eliquis secondary to chronic atrial fibrillation. Therefore, Plavix has been discontinued (6) T2DM (type 2 diabetes mellitus) Qualifiers: Diabetes mellitus adjunct faculty for medical terminology insulin use: with adjunct faculty for medical terminology use Diabetes mellitus complication status: with circulatory complication Diabetes mellitus complication detail: with peripheral angiopathy with gangrene Qualified Code(s): E11.52 - Type 2 diabetes mellitus with diabetic peripheral angiopathy with gangrene; Z79.4 - director long term care (current) use of insulin Is this a current diagnosis for this admission?: Yes Plan: A1c 11.4%. Continue consistent carb diet. We will continue to adjust 70/30. Discussed with patient the importance of dietary and medication compliance. Registered dietitian and medical educator consulted. - Time Time Spent with patient: 35 or more minutes Medications reviewed and adjusted accordingly: Yes Anticipated discharge: Home with Homehealth Within: within 48 hours
[2019-10-19] MEDS: APIXABAN 5 MG TABLET PO SCH (18:31)
[2019-10-19] MEDS: MINERAL OIL/PETROLATUM,WHITE CREAM 114 GM TP SCH (20:14)
[2019-10-20] MEDS ORDERED: VANCOMYCIN HCL 1,000 MG in DEXTROSE 5%-WATER 250 ML IV SCH ×2
[2019-10-20] MEDS: CEFEPIME HCL 2 GM in DEXTROSE 5%-WATER 50 ML IV SCH (05:17)
[2019-10-20] MEDS: GABAPENTIN 300 MG CAPSULE PO SCH ×3 (05:17→21:49)
[2019-10-20 06:00] LABS: HEMOGLOBIN 13.1 g/dL (13.5-17.0); MEAN CORPUSCULAR HEMOGLOBIN 29.8 pg (27.0-33.4); MEAN CORPUSCULAR HGB CONC 33.4 g/dL (32.0-36.0); MEAN CORPUSCULAR VOLUME 89 fl (80-97); RED BLOOD COUNT 4.39 10^6/uL (4.35-5.55); RED CELL DISTRIBUTION WIDTH 14.6 % (11.5-14.0); WHITE BLOOD COUNT 11.9 10^3/uL (4.0-10.5)
[2019-10-20 06:50] LABS: PLATELET COUNT 297 10^3/uL (150-450)
[2019-10-20] MEDS: DOCUSATE SODIUM 100 MG CAPSULE PO SCH (09:46)
[2019-10-20] MEDS: HUM INSULIN NPH/REG INSULIN HM 100 UNIT/1 ML 3 ML SUBCUT SCH ×2 (09:46→17:07)
[2019-10-20] MEDS: METOPROLOL TARTRATE 50 MG TABLET PO SCH ×2 (09:46→21:49)
[2019-10-20] MEDS: LISINOPRIL 10 MG TABLET PO SCH (09:46)
[2019-10-20] MEDS: ASPIRIN 81 MG TABLET, CHEWABLE PO SCH (09:46)
[2019-10-20] MEDS: OXYCODONE-ACETAMINOPHEN 5-325 MG TABLET PO PRN ×3 (09:46→21:50)
[2019-10-20] MEDS: APIXABAN 5 MG TABLET PO SCH ×2 (09:46→17:06)
[2019-10-20] MEDS: INSULIN LISPRO 100 UNIT/ML 3 ML VIAL SUBCUT SCH ×4 (09:47→21:51)
[2019-10-20] MEDS: MINERAL OIL/PETROLATUM,WHITE CREAM 114 GM TP SCH ×2 (09:48→17:07)
--- NOTE | 2019-10-20 14:19 | PDOC PROGRESS REPORT ---
Subjective Progress Note for:: 10/20/19 Subjective:: CATHERINE LEROY II is a 64 year old male who presents after 5 days of progressive left diabetic foot ulcer wound progression who was admitted 10/15/19 for Osteomyelitis; now POD #4 left BKA. Patient was seen on morning rounds with his [id number] and nephew present. He is found resting in bed, comfortably, on room air. He reports that his pain is well controlled with gabapentin and has required very little oxycodone for breakthrough. He is hopeful to discharge to home with home health services. He is pleased to have been able to stand with minimal assistance and walker today. He does note that he has 3 stairs into his home and is concerned about his ab ility to mobilize on carpet; recommend that he discuss this with physical therapy at their next evaluation/treatment session. He denies fever, chills, chest pain, palpitations, dyspnea, orthopnea, abdominal pain, nausea vomiting and diarrhea. He has no other questions or concerns at this time. No concerns per nursing. Reason For Visit: OSTEOMYELITIS OF LEFT FOOT Physical Exam Vital Signs: Temp Pulse Resp BP Pulse Ox 98.2 F 104 H 18 147/89 H 97 10/20/19 10:42 10/20/19 10:42 10/20/19 10:42 10/20/19 10:42 10/20/19 10:42 Intake & Output 10/19/19 10/20/19 10/21/19 06:59 06:59 06:59 Intake Total 3880 5180 240 Output Total 3675 1700 600 Balance 205 3480 -360 Weight 84.4 kg 84.4 kg General appearance: PRESENT: no acute distress, cooperative, well-developed, well-nourished - Overweight Head exam: PRESENT: atraumatic, normocephalic Eye exam: PRESENT: conjunctiva pink, EOMI, PERRLA. ABSENT: scleral icterus Ear exam: PRESENT: normal external ear exam Mouth exam: PRESENT: moist, tongue midline Teeth exam: PRESENT: poor dentation Respiratory exam: PRESENT: clear to auscultation emma, symmetrical, unlabored. ABSENT: rales, rhonchi, wheezes Cardiovascular exam: PRESENT: RRR, +S1, +S2. ABSENT: diastolic murmur, rubs, systolic murmur Vascular exam: PRESENT: normal capillary refill GI/Abdominal exam: PRESENT: normal bowel sounds, soft. ABSENT: distended, guarding, mass, organolmegaly, rebound, tenderness Rectal exam: PRESENT: deferred Extremities exam: PRESENT: full ROM, other - New left BKA. ABSENT: calf tenderness, clubbing, pedal edema Neurological exam: PRESENT: alert, awake, oriented to person, oriented to place, oriented to time, oriented to situation, CN II-XII grossly intact. ABSENT: motor sensory deficit Psychiatric exam: PRESENT: appropriate affect, normal mood. ABSENT: homicidal ideation, suicidal ideation Skin exam: PRESENT: dry, warm, other - Chronic diabetic foot wound to medial aspect of right great toe; packing in place. ABSENT: cyanosis, intact, rash Results Laboratory Results: 10/20/19 05:27 10/19/19 10:20 10/20/19 05:27 WBC 11.9 H RBC 4.39 Hgb 13.1 L Hct 39.0 MCV 89 MCH 29.8 MCHC 33.4 RDW 14.6 H Plt Count 297 Impressions: Foot X-Ray 10/15/19 11:17 IMPRESSION: 1. WORSENING DEMINERALIZATION IN THE RIGHT FOOT. STABLE SURGICAL CHANGES AND CHRONIC FINDINGS. 2. WORSENING DEMINERALIZATION IN THE LEFT FOOT. STABLE SURGICAL CHANGES AND CHRONIC FINDINGS. THE PROXIMAL PHALANX OF THE 2ND TOE IS NO LONGER PRESENT. NO HISTORY AVAILABLE TO WHETHER THIS IS DUE TO SURGERY. IF THIS IS NOT RELATED TO PRIOR SURGERY, THEN THIS WOULD BE INDICATIVE OF DESTRUCTION SECONDARY TO OSTEOMYELITIS. THERE IS ALSO SOFT TISSUE SWELLING AND GAS IN THE SOFT TISSUES ADJACENT TO THE HEAD OF THE 2ND METATARSAL CONSISTENT WITH SOFT TISSUE INFECTION. Chest X-Ray 10/16/19 07:36 IMPRESSION: Cardiomegaly and low inspiratory lung volumes without a superimposed acute cardiopulmonary process. Assessment and Plan - Diagnosis (1) Osteomyelitis of left foot Qualifiers: Osteomyelitis type: other acute Qualified Code(s): M86.172 - Other acute osteomyelitis, left ankle and foot Is this a current diagnosis for this admission?: Yes Plan: Now postop day #5 left BKA. Sent to ED by elevated work platform operator Dr. Garay Surgery is consulted; have since signed off. Patient to follow-up in the [facility] in [address] Presley; no indications for continued antibiotics per surgery's perspective. Discontinued vancomycin yesterday, will discontinue cefepime today. Continue analgesics as needed. Physical therapy consultation. Discharge planning consulted. (2) Chronic a-fib Is this a current diagnosis for this admission?: Yes Plan: Has had A. fib for a long time per patient however denies ever being put on full strength blood thinner; unclear why this is as his chads 2 vascular score is clearly high enough to necessitate a NOAC or Coumadin Surgery has cleared for start of chronic anticoagulation. Will ask discharge planning to assist with cost of Eliquis. Rate controlled on home dose metoprolol (3) Diabetic neuropathy Is this a current diagnosis for this admission?: Yes Plan: Continue gabapentin 300 mg every 8 hours. Continue Tylenol and Motrin as needed. Oxycodone for breakthrough pain. (4) HTN (hypertension) Is this a current diagnosis for this admission?: Yes Plan: Slightly elevated blood pressures today Continue metoprolol 50 mg every 12 hours and lisinopril 40 mg daily. Consider start of HCTZ. IV hydralazine as needed for blood pressure control. Consistent carb/cardiac diet. (5) PAD (peripheral artery disease) Is this a current diagnosis for this admission?: Yes Plan: Per patient, status post bypass and left lower extremity, followed by vascular surgery outpatient Restarted home aspirin Started on Eliquis secondary to chronic atrial fibrillation. Therefore, Plavix has been discontinued (6) T2DM (type 2 diabetes mellitus) Qualifiers: Diabetes mellitus intermediate manager insulin use: with intermediate manager use Diabetes mellitus complication status: with circulatory complication Diabetes mellitus complication detail: with peripheral angiopathy with gangrene Qualified Code(s): E11.52 - Type 2 diabetes mellitus with diabetic peripheral angiopathy with gangrene; Z79.4 - adjunct faculty for medical terminology (current) use of insulin Is this a current diagnosis for this admission?: Yes Plan: A1c 11.4%. Continue consistent carb diet. We will continue to adjust 70/30. Discussed with patient the importance of dietary and medication compliance. Registered dietitian and staff development educator consulted. - Time Time Spent with patient: 25-34 minutes Medications reviewed and adjusted accordingly: Yes Anticipated discharge: Home with Homehealth Within: within 24 hours
[2019-10-21] MEDS: OXYCODONE-ACETAMINOPHEN 5-325 MG TABLET PO PRN ×4 (02:41→18:39)
[2019-10-21] MEDS: GABAPENTIN 300 MG CAPSULE PO SCH ×3 (05:30→21:31)
[2019-10-21] MEDS: HUM INSULIN NPH/REG INSULIN HM 100 UNIT/1 ML 3 ML SUBCUT SCH ×2 (07:55→18:39)
[2019-10-21] MEDS: INSULIN LISPRO 100 UNIT/ML 3 ML VIAL SUBCUT SCH ×4 (07:55→21:30)
[2019-10-21] MEDS: DOCUSATE SODIUM 100 MG CAPSULE PO SCH (09:13)
[2019-10-21] MEDS: METOPROLOL TARTRATE 50 MG TABLET PO SCH ×2 (09:14→21:31)
[2019-10-21] MEDS: MINERAL OIL/PETROLATUM,WHITE CREAM 114 GM TP SCH ×2 (09:14→19:44)
[2019-10-21] MEDS: ASPIRIN 81 MG TABLET, CHEWABLE PO SCH (09:14)
[2019-10-21] MEDS: APIXABAN 5 MG TABLET PO SCH ×2 (09:14→18:39)
[2019-10-21] MEDS: LISINOPRIL 10 MG TABLET PO SCH (09:14)
[2019-10-21 10:28] LABS: ABSOLUTE EOSINOPHILS # (AUTO) 0.2 10^3/uL (0.0-0.6); ABSOLUTE LYMPHOCYTES (AUTO) 1.3 10^3/uL (0.5-4.7); ABSOLUTE MONOCYTES (AUTO) 0.9 10^3/uL (0.1-1.4); ABSOLUTE NEUT (AUTO) 6.9 10^3/uL (1.7-8.2); BASOPHILS % (AUTO) 0.3 % (0-2); EOSINOPHILS % (AUTO) 2.1 % (0-6); HEMOGLOBIN 12.6 g/dL (13.5-17.0); LYMPHOCYTES % (AUTO) 14.4 % (13-45); MEAN CORPUSCULAR HEMOGLOBIN 29.6 pg (27.0-33.4); MEAN CORPUSCULAR HGB CONC 33.2 g/dL (32.0-36.0); MEAN CORPUSCULAR VOLUME 89 fl (80-97); MONOCYTES % (AUTO) 9.4 % (3-13); PLATELET COUNT 335 10^3/uL (150-450); RED BLOOD COUNT 4.27 10^6/uL (4.35-5.55); RED CELL DISTRIBUTION WIDTH 14.6 % (11.5-14.0); SEGMENTED NEUTROPHILS % (AUTO) 73.8 % (42-78); TOTAL CELLS COUNTED % (AUTO) 100 %; WHITE BLOOD COUNT 9.3 10^3/uL (4.0-10.5)
[2019-10-21 10:39] LABS: ANION GAP 8 (5-19); BLOOD UREA NITROGEN 16 mg/dL (7-20); CALCIUM 8.7 mg/dL (8.4-10.2); CARBON DIOXIDE 28 mmol/L (22-30); CHLORIDE 101 mmol/L (98-107); GLUCOSE 230 mg/dL (75-110); POTASSIUM 3.9 mmol/L (3.6-5.0)
[2019-10-22] MEDS: OXYCODONE-ACETAMINOPHEN 5-325 MG TABLET PO PRN ×4 (05:32→22:12)
[2019-10-22] MEDS: GABAPENTIN 300 MG CAPSULE PO SCH ×3 (05:32→22:09)
[2019-10-22] MEDS: INSULIN LISPRO 100 UNIT/ML 3 ML VIAL SUBCUT SCH ×4 (07:49→21:34)
[2019-10-22] MEDS: HUM INSULIN NPH/REG INSULIN HM 100 UNIT/1 ML 3 ML SUBCUT SCH ×2 (07:50→16:50)
[2019-10-22] MEDS: MINERAL OIL/PETROLATUM,WHITE CREAM 114 GM TP SCH ×2 (09:26→17:48)
[2019-10-22] MEDS: DOCUSATE SODIUM 100 MG CAPSULE PO SCH (09:26)
[2019-10-22] MEDS: LISINOPRIL 10 MG TABLET PO SCH (09:26)
[2019-10-22] MEDS: ASPIRIN 81 MG TABLET, CHEWABLE PO SCH (09:26)
[2019-10-22] MEDS: METOPROLOL TARTRATE 50 MG TABLET PO SCH ×2 (09:26→22:09)
[2019-10-22] MEDS: APIXABAN 5 MG TABLET PO SCH ×2 (09:26→17:48)
[2019-10-22] MEDS ORDERED: DEXTROSE 50%-WATER 25 GM/50 ML DISP.SYRIN IV ONE ×2 (21:42→22:30)
[2019-10-23] MEDS: OXYCODONE-ACETAMINOPHEN 5-325 MG TABLET PO PRN ×2 (03:37→15:43)
[2019-10-23] MEDS: GABAPENTIN 300 MG CAPSULE PO SCH ×2 (05:17→14:44)
[2019-10-23] MEDS: HUM INSULIN NPH/REG INSULIN HM 100 UNIT/1 ML 3 ML SUBCUT SCH ×2 (09:15→18:21)
[2019-10-23] MEDS: INSULIN LISPRO 100 UNIT/ML 3 ML VIAL SUBCUT SCH ×3 (09:15→18:16)
[2019-10-23] MEDS: LISINOPRIL 10 MG TABLET PO SCH (10:32)
[2019-10-23] MEDS: APIXABAN 5 MG TABLET PO SCH ×2 (10:33→18:22)
[2019-10-23] MEDS: MINERAL OIL/PETROLATUM,WHITE CREAM 114 GM TP SCH ×2 (10:33→18:22)
[2019-10-23] MEDS: ASPIRIN 81 MG TABLET, CHEWABLE PO SCH (10:33)
[2019-10-23] MEDS: METOPROLOL TARTRATE 50 MG TABLET PO SCH (10:33)
[2019-10-23] MEDS: DOCUSATE SODIUM 100 MG CAPSULE PO SCH (10:33)
[2019-10-24 05:24] VITALS: BP 119/61
--- NOTE | 2019-10-26 13:42 | PDOC DISCHARGE SUMMARY ---
Impression - Admit/DC Date/PCP Admission Date/Primary Care Provider: 10/15/19 19:32 YESI WALKER MD Discharge Date: 10/21/19 - Discharge Diagnosis (1) Osteomyelitis of left foot Is this a current diagnosis for this admission?: Yes (2) Chronic a-fib Is this a current diagnosis for this admission?: Yes (3) Diabetic neuropathy Is this a current diagnosis for this admission?: Yes (4) HTN (hypertension) Is this a current diagnosis for this admission?: Yes (5) PAD (peripheral artery disease) Is this a current diagnosis for this admission?: Yes (6) T2DM (type 2 diabetes mellitus) Is this a current diagnosis for this admission?: Yes - Additional Information Resuscitation Status: Full Code Discharge Diet: Diabetic Discharge Activity: Activity As Tolerated, Balance Activity w/Rest, Slowly Increase Activity, Supervised Activity Referrals: HUBER PRESLEY MD [ACTIVE STAFF] - 11/06/19 11:00 am Prescriptions: Aspirin [Aspirin 81 mg Chewable Tablet] 81 mg PO DAILY #90 tab.chew Apixaban [Eliquis 5 mg Tablet] 5 mg PO BID #60 tablet Mineral Oil/Petrolatum,White [Eucerin Cream 114 gm] 1 applic TP BID #1 jar Gabapentin [Neurontin 300 mg Capsule] 300 mg PO Q8 #60 capsule Oxycodone HCl/Acetaminophen [Percocet 5-325 mg Tablet] 1 tab PO Q4HP PRN #20 tablet PRN Reason: Home Medications: Insulin Aspart Prot/Insuln Asp [Novolog Mix 70-30 Flexpen] 30 units SQ QAM 10/15/19 Insulin Aspart Prot/Insuln Asp [Novolog Mix 70-30 Flexpen] 70 units SQ QHS 10/15/19 Lisinopril [Prinivil 40 mg Tablet] 40 mg PO DAILY 10/15/19 Metoprolol Tartrate [Lopressor 50 mg Tablet] 50 mg PO Q12 10/15/19 Oxycodone HCl/Acetaminophen [Percocet 10-325 mg Tablet] 1 tab PO Q6 10/15/19 Apixaban [Eliquis 5 mg Tablet] 5 mg PO BID #60 tablet 10/21/19 Aspirin [Aspirin 81 mg Chewable Tablet] 81 mg PO DAILY #90 tab.chew 10/21/19 Docusate Sodium [Colace 100 mg Capsule] 100 mg PO DAILY capsule 10/21/19 Gabapentin [Neurontin 300 mg Capsule] 300 mg PO Q8 #60 capsule 10/21/19 Ibuprofen [Motrin 800 mg Tablet] 800 mg PO Q6HP PRN tablet 10/21/19 Mineral Oil/Petrolatum,White [Eucerin Cream 114 gm] 1 applic TP BID #1 jar 10/21/19 Oxycodone HCl/Acetaminophen [Percocet 5-325 mg Tablet] 1 tab PO Q4HP PRN #20 tablet 10/21/19 History of Present Illiness History of Present Illness: Per H&P by Dr. Benoit: CATHERINE LEROY II is a 64 year old male who presents after 5 days of progressive left diabetic foot ulcer wound progression, sent by his fretted instrument maker hand Dr. Garay for surgical evaluation in ED. Per patient, he has been completely asymptomatic and denies fever/chills/nausea/vomiting/diarrhea/abdominal pain/malaise. On admission, patient had x-ray of his left foot which showed gas and concerns for osteomyelitis. Patient has wound care nursing that comes to his home and they also expressed their concerns about the deterioration of this wound on Saturday prior to admission. Patient is afebrile however his WBC is up to 13.9 on admission. ESR up to 60 and CRP up to 40.3. Podiatry was notified of admission by ED who requested general surgery consult. ED called general surgeon who is agreed to see patient and is planning a BKA in the near future. Patient was started on vancomycin and cefepime for antibiotic coverage. He has no signs of sepsis on admission other than high WBC. Hospital Course Hospital Course: (1) Osteomyelitis of left foot Now s/p left BKA. Patient to follow-up in the [facility] in [address] Presley; no indications for continued antibiotics per surgery's perspective. Patient had empirically been placed on vancomycin and cefepime; discontinued prior to discharge. Patient is discharged home with self-care and home health nursing. He is advised to follow-up with his primary care provider within 1 week, [facility] within 2 weeks, and with the outpatient [facility] physical therapy department for assist w/ prosthetic arrangements. (2) Chronic a-fib Discharged on Eliquis for chronic anticoagulation. Rate controlled on home dose metoprolol (3) Diabetic neuropathy Continue gabapentin 300 mg every 8 hours. Continue Tylenol and Motrin as needed. Oxycodone for breakthrough pain. (4) HTN (hypertension) Continue home dose metoprolol and lisinopril. Cardiac diet. Lifestyle modification, dietary and medication compliance encouraged. (5) PAD (peripheral artery disease) Per patient, status post bypass and left lower extremity, followed by vascular surgery outpatient Continue ASA and Eliquis. Plavix has been discontinued (6) T2DM (type 2 diabetes mellitus) A1c 11.4%. Continue consistent carb diet. Continue twice daily 70/30. Discussed with patient the importance of dietary and medication compliance. Patient did have opportunity to meet with registered dietitian and health educator. Physical Exam Vital Signs: Temp Pulse Resp BP Pulse Ox 98.5 F 81 17 119/61 100 10/23/19 18:25 10/23/19 18:25 10/23/19 18:25 10/23/19 18:25 10/23/19 18:25 General appearance: PRESENT: no acute distress, cooperative, obese, well- developed, well-nourished Head exam: PRESENT: atraumatic, normocephalic Eye exam: PRESENT: conjunctiva pink, EOMI, PERRLA. ABSENT: scleral icterus Mouth exam: PRESENT: moist, tongue midline Teeth exam: PRESENT: poor dentation Respiratory exam: PRESENT: clear to auscultation emma, symmetrical, unlabored. ABSENT: rales, rhonchi, wheezes Cardiovascular exam: PRESENT: RRR, +S1, +S2. ABSENT: diastolic murmur, rubs, systolic murmur Pulses: PRESENT: +1 pedal pulses bilateral - Right foot Vascular exam: PRESENT: normal capillary refill GI/Abdominal exam: PRESENT: normal bowel sounds, soft. ABSENT: distended, guarding, mass, organolmegaly, rebound, tenderness Rectal exam: PRESENT: deferred Extremities exam: PRESENT: full ROM, other - Left BKA. ABSENT: calf tenderness, clubbing, pedal edema Neurological exam: PRESENT: alert, awake, oriented to person, oriented to place, oriented to time, oriented to situation, CN II-XII grossly intact. ABSENT: motor sensory deficit Psychiatric exam: PRESENT: appropriate affect, normal mood. ABSENT: homicidal ideation, suicidal ideation Skin exam: PRESENT: dry, warm, other - Chronic foot wound and eschar to the most distal aspect of right toes 1 through 4. Intact, 1 cm round, fluid-filled blister noted to the plantar surface of his foot at the fourth metatarsal base. No surrounding erythema. +1 pedal edema.. ABSENT: cyanosis, intact, rash Results Laboratory Results: WBC 9.3 10^3/uL (4.0-10.5) 10/21/19 09:50 RBC 4.27 10^6/uL (4.35-5.55) L 10/21/19 09:50 Hgb 12.6 g/dL (13.5-17.0) L 10/21/19 09:50 Hct 38.0 % (37.9-51.0) 10/21/19 09:50 MCV 89 fl (80-97) 10/21/19 09:50 MCH 29.6 pg (27.0-33.4) 10/21/19 09:50 MCHC 33.2 g/dL (32.0-36.0) 10/21/19 09:50 RDW 14.6 % (11.5-14.0) H 10/21/19 09:50 Plt Count 335 10^3/uL (150-450) 10/21/19 09:50 Lymph % (Auto) 14.4 % (13-45) 10/21/19 09:50 Waldo % (Auto) 9.4 % (3-13) 10/21/19 09:50 Eos % (Auto) 2.1 % (0-6) 10/21/19 09:50 Baso % (Auto) 0.3 % (0-2) 10/21/19 09:50 Absolute Neuts (auto) 6.9 10^3/uL (1.7-8.2) 10/21/19 09:50 Absolute Lymphs (auto) 1.3 10^3/uL (0.5-4.7) 10/21/19 09:50 Absolute Monos (auto) 0.9 10^3/uL (0.1-1.4) 10/21/19 09:50 Absolute Eos (auto) 0.2 10^3/uL (0.0-0.6) 10/21/19 09:50 Absolute Basos (auto) 0.0 10^3/uL (0.0-0.2) 10/21/19 09:50 Total Counted 100 10/19/19 10:20 Seg Neutrophils % 73.8 % (42-78) 10/21/19 09:50 Seg Neuts % (Manual) 66 % (42-78) 10/19/19 10:20 Lymphocytes % (Manual) 16 % (13-45) 10/19/19 10:20 Atypical Lymphs % 2 % (0) 10/19/19 10:20 Monocytes % (Manual) 14 % (3-13) H 10/19/19 10:20 Eosinophils % (Manual) 2 % (0-6) 10/19/19 10:20 Basophils % (Manual) 0 % (0-2) 10/19/19 10:20 Abs Neuts (Manual) 7.1 10^3/uL (1.7-8.2) 10/19/19 10:20 Abs Lymphs (Manual) 1.9 10^3/uL (0.5-4.7) 10/19/19 10:20 Abs Monocytes (Manual) 1.5 10^3/uL (0.1-1.4) H 10/19/19 10:20 Absolute Eos (Manual) 0.2 10^3/uL (0.0-0.6) 10/19/19 10:20 Abs Basophils (Manual) 0.0 10^3/uL (0.0-0.2) 10/19/19 10:20 Platelet Comment ADEQUATE 10/19/19 10:20 Anisocytosis SLIGHT 10/19/19 10:20 ESR 60 mm/hr (0-20) H 10/15/19 11:25 Sodium 136.6 mmol/L (137-145) L 10/21/19 09:50 Potassium 3.9 mmol/L (3.6-5.0) 10/21/19 09:50 Chloride 101 mmol/L (98-107) 10/21/19 09:50 Carbon Dioxide 28 mmol/L (22-30) 10/21/19 09:50 Anion Gap 8 (5-19) 10/21/19 09:50 BUN 16 mg/dL (7-20) 10/21/19 09:50 Creatinine 0.55 mg/dL (0.52-1.25) 10/21/19 09:50 Est GFR ( Amer) > 60 (>60) 10/21/19 09:50 Est GFR (MDRD) Non-Af > 60 (>60) 10/21/19 09:50 Glucose 230 mg/dL (75-110) H 10/21/19 09:50 POC Glucose 96 mg/dL (70-110) 10/23/19 15:14 Hemoglobin A1c % 11.4 % (4.7-6.0) H 10/16/19 06:43 Calcium 8.7 mg/dL (8.4-10.2) 10/21/19 09:50 Total Bilirubin 0.7 mg/dL (0.2-1.3) 10/15/19 11:25 Direct Bilirubin 0.4 mg/dL (0.0-0.4) 10/15/19 11:25 Neonat Total Bilirubin Not Reportable 10/15/19 11:25 Neonat Direct Bilirubin Not Reportable 10/15/19 11:25 Neonat Indirect Bili Not Reportable 10/15/19 11:25 AST 23 U/L (17-59) 10/15/19 11:25 ALT 21 U/L (<50) 10/15/19 11:25 Alkaline Phosphatase 135 U/L (38-126) H 10/15/19 11:25 C-Reactive Protein 40.3 mg/L (<10.0) H 10/15/19 11:25 Total Protein 7.4 g/dL (6.3-8.2) 10/15/19 11:25 Albumin 3.6 g/dL (3.5-5.0) 10/15/19 11:25 Time Trough Drawn 1020 10/19/19 10:20 Vancomycin Trough 27.1 ug/mL (5.0-20.0) H 10/19/19 10:20 Blood Type A POSITIVE 10/16/19 11:14 Antibody Screen NEGATIVE 10/16/19 11:14 Impressions: Foot X-Ray 10/15/19 11:17 IMPRESSION: 1. WORSENING DEMINERALIZATION IN THE RIGHT FOOT. STABLE SURGICAL CHANGES AND CHRONIC FINDINGS. 2. WORSENING DEMINERALIZATION IN THE LEFT FOOT. STABLE SURGICAL CHANGES AND CHRONIC FINDINGS. THE PROXIMAL PHALANX OF THE 2ND TOE IS NO LONGER PRESENT. NO HISTORY AVAILABLE TO WHETHER THIS IS DUE TO SURGERY. IF THIS IS NOT RELATED TO PRIOR SURGERY, THEN THIS WOULD BE INDICATIVE OF DESTRUCTION SECONDARY TO OSTEOMYELITIS. THERE IS ALSO SOFT TISSUE SWELLING AND GAS IN THE SOFT TISSUES ADJACENT TO THE HEAD OF THE 2ND METATARSAL CONSISTENT WITH SOFT TISSUE INFECTION. Chest X-Ray 10/16/19 07:36 IMPRESSION: Cardiomegaly and low inspiratory lung volumes without a superimposed acute cardiopulmonary process. Plan Plan of Treatment: Patient was discharged to home with home health services. Discharge planning has been able to supply the patient with a wheelchair for mobility. He is advised to follow-up with his primary care provider within 1 week. He is instructed to follow-up with the [facility] within 2 weeks. He should follow-up with the [facility] outpatient physical therapy services for assistance with continued physical therapy and prosthetic fitting. He is instructed to take his medications as prescribed. Dietary and medication compliance are encouraged. He is encouraged to return to the emergency department as needed for concerning symptoms. Time Spent: Greater than 30 Minutes Stroke Is this a Stroke Patient?: No Acute Heart Failure - Is this a Heart Failure Patient?: No
== END 2019-10-23 20:22 | disposition home or self-care (01) | DRG 239 ==
LOC: ER 11:07 → EH 19:32 → 4S 20:44
PROVIDERS: ADMIT Internal Medicine; ATTEND Internal Medicine
PROC: 0Y6J0Z3 Detachment at Left Lower Leg, Low, Open Approach (ICD-10-PCS; principal; 2019-10-15)
DX: E11.52 Type 2 diabetes mellitus with diabetic peripheral angiopathy with gangrene (principal); A48.0 Gas gangrene; I48.20 Chronic atrial fibrillation, unspecified; M86.172 Other acute osteomyelitis, left ankle and foot; E11.69 Type 2 diabetes mellitus with other specified complication; E11.40 Type 2 diabetes mellitus with diabetic neuropathy, unspecified; I10 Essential (primary) hypertension; E78.5 Hyperlipidemia, unspecified; E11.621 Type 2 diabetes mellitus with foot ulcer; B95.2 Enterococcus as the cause of diseases classified elsewhere; B95.62 Methicillin resistant Staphylococcus aureus infection as the cause of diseases classified elsewhere; Z60.2 Problems related to living alone; Z79.02 Long term (current) use of antithrombotics/antiplatelets; Z89.422 Acquired absence of other left toe(s); Z89.412 Acquired absence of left great toe; Z87.891 Personal history of nicotine dependence; Z79.4 Long term (current) use of insulin; Z79.899 Other long term (current) drug therapy
CPT/HCPCS: 01482; 36415; 71045; 80048; 80053; 80202; 82962; 83036; 85025; 85027; 85652; 86140; 86850; 86900; 86901; 87070; 87077; 87186; 87205; 88307; 88311; 93005; 93010; 93306; 96365; 96366; 96367; 96375; 99285; J0131; J0330; J0692; J1170; J1644; J1815; J2060; J2250; J2270; J2405; J2704; J3010; J3370; J3490; J7060

== ENCOUNTER 2019-11-16 14:55 | Emergency (ER) | payer OTHER ==
[2019-11-16] MEDS ORDERED: NORMAL SALINE 1000 ML 1,000 ML IV ONE (16:30)
[2019-11-16] MEDS ORDERED: METOPROLOL TARTRATE PF/INJ 5 MG/5 ML SDV IV ONE ×3 (16:39→20:49)
[2019-11-16 16:51] LABS: INTERNATIONAL RATION (INR) 1.28; PROTHROMBIN TIME 16.1 SEC (11.4-15.4)
[2019-11-16 16:52] LABS: ABSOLUTE BASOPHILS # (AUTO) 0.1 10^3/uL (0.0-0.2); ABSOLUTE LYMPHOCYTES (AUTO) 0.8 10^3/uL (0.5-4.7); ABSOLUTE MONOCYTES (AUTO) 1.2 10^3/uL (0.1-1.4); ABSOLUTE NEUT (AUTO) 10.3 10^3/uL (1.7-8.2); BASOPHILS % (AUTO) 1.1 % (0-2); EOSINOPHILS % (AUTO) 0.1 % (0-6); HEMATOCRIT 42.2 % (37.9-51.0); HEMOGLOBIN 14.1 g/dL (13.5-17.0); LYMPHOCYTES % (AUTO) 6.5 % (13-45); MEAN CORPUSCULAR HGB CONC 33.3 g/dL (32.0-36.0); MEAN CORPUSCULAR VOLUME 90 fl (80-97); MONOCYTES % (AUTO) 9.3 % (3-13); PLATELET COUNT 242 10^3/uL (150-450); RED BLOOD COUNT 4.69 10^6/uL (4.35-5.55); RED CELL DISTRIBUTION WIDTH 16.6 % (11.5-14.0); TOTAL CELLS COUNTED % (AUTO) 100 %; WHITE BLOOD COUNT 12.4 10^3/uL (4.0-10.5)
[2019-11-16 17:18] LABS: ALBUMIN 3.8 g/dL (3.5-5.0); ALKALINE PHOSPHATASE 120 U/L (38-126); ANION GAP 13 (5-19); ASPARTATE AMINO TRANSFERASE 28 U/L (17-59); BILIRUBIN,DIRECT 0.4 mg/dL (0.0-0.4); BILIRUBIN,TOTAL 2.7 mg/dL (0.2-1.3); BLOOD UREA NITROGEN 15 mg/dL (7-20); CALCIUM 9.1 mg/dL (8.4-10.2); CARBON DIOXIDE 25 mmol/L (22-30); CHLORIDE 101 mmol/L (98-107); GLUCOSE 133 mg/dL (75-110); POTASSIUM 3.9 mmol/L (3.6-5.0); TOTAL PROTEIN 7.4 g/dL (6.3-8.2)
--- NOTE | 2019-11-16 18:13 | EKG REPORT ---
SEVERITY:- ABNORMAL ECG - ATRIAL FIBRILLATION, V-RATE 96-156 MULTIPLE VENTRICULAR PREMATURE COMPLEXES BORDERLINE LEFT AXIS DEVIATION REPOL ABNRM SUGGESTS ISCHEMIA, DIFFUSE LEADS : Confirmed by: Lacie Ball MD 16-Nov-2019 18:12:35
[2019-11-16 19:48] LABS: APPEARANCE,URINE CLOUDY; BILIRUBIN,URINE NEGATIVE (NEGATIVE); COLOR,URINE AMBER; GLUCOSE, URINE 50 mg/dL (NEGATIVE); KETONES,URINE 20 mg/dL (NEGATIVE); PROTEIN,URINE >=500 mg/dL (NEGATIVE); URINE SPECIFIC GRAVITY 1.026; UROBILINOGEN,URINE NEGATIVE mg/dL (<2.0)
[2019-11-16 20:15] VITALS: BP 142/86
[2019-11-16] MEDS ORDERED: APIXABAN 5 MG TABLET PO ONE (20:45)
--- NOTE | 2019-11-16 20:55 | ER Document Report ---
ED Cardiac - General Chief Complaint: Irregular Pulse Stated Complaint: WEAKNESS Time Seen by Provider: 11/16/19 15:36 Primary Care Provider: YESI WALKER MD [Primary Care Provider] - Follow up as needed Information source: Patient TRAVEL OUTSIDE OF THE [place] IN LAST 30 DAYS: No - HPI Notes: Patient comes in with a complaint of his left fingers appearing blue and tingling. He states he does not have any pain in them but they feel cold and tingly. Patient does have a history of severe peripheral arterial disease. He recently had a left leg amputation done here at this hospital. Today he was in clinic having the saloni removed and told the doctor about his fingers. At that time he was referred here to the emergency department. He states the fingers have been tingling and feeling cold constantly since last night. Nothing appears to make it better or worse. There is no radiation of the symptoms. He specifically denies any pain. No chest pain or shortness of breath. Patient is unsure if he is taking his blood thinner or not. He states that his pills are prepared for him by the pharmacy. - Related Data Allergies/Adverse Reactions: No Known Allergies Allergy (Verified 09/24/19 14:24) Past Medical History - General Information source: Patient - Social History Smoking Status: Former Smoker Chew tobacco use (# tins/day): No Frequency of alcohol use: None Drug Abuse: None, Marijuana Family History: Reviewed & Not Pertinent Patient has suicidal ideation: No Patient has homicidal ideation: No - Past Medical History Cardiac Medical History: Reports: Hx Atrial Fibrillation - told he had irregular hearteat, ?Afib? --on Plavix, Hx Congestive Heart Failure, Hx Hypercholesterolemia, Hx Hypertension, Hx Peripheral Vascular Disease Endocrine Medical History: Reports: Hx Diabetes Mellitus Type 1, Hx Diabetes Mellitus Type 2 Renal/ Medical History: Denies: Hx Peritoneal Dialysis Past Surgical History: Reports: Hx Orthopedic Surgery - left ankle Fx; amputation left big toe, Hx Vascular Surgery Review of Systems - Review of Systems Constitutional: denies: Chills, Fever Cardiovascular: denies: Chest pain, Palpitations Respiratory: denies: Cough, Short of breath -: Yes All other systems reviewed and negative Physical Exam - Vital signs Vitals: Resp 20 11/16/19 15:27 Interpretation: Normal - General General appearance: Appears well, Alert - HEENT Head: Normocephalic, Atraumatic Eyes: Normal Pupils: PERRL - Respiratory Respiratory status: No respiratory distress Chest status: Nontender Breath sounds: Normal Chest palpation: Normal - Cardiovascular Rhythm: Irregularly irregular, Tachycardia Heart sounds: Normal auscultation Murmur: No - Abdominal Inspection: Normal Distension: No distension Bowel sounds: Normal Tenderness: Nontender Organomegaly: No organomegaly - Back Back: Normal, Nontender - Extremities General upper extremity: Nontender, Normal ROM, Other - Patient's fingertips on the left hand are dusky blue. This seems to involve all fingers however the index finger appears to be the least involved. They are not tender to palpation. They are slightly cool. Capillary refill is delayed in these fingers. Patient does not have a palpable radial pulse on either left or right side. The patient's hand exam is consistent with obvious ischemic distal fingers. General lower extremity: Other - Patient had a recent amputation on the left. The site of amputation unremarkable. The right side has changes consistent with chronic venous stasis. - Neurological Neuro grossly intact: Yes Cognition: Normal Orientation: AAOx4 Gurley Coma Scale Eye Opening: Spontaneous Alex Coma Scale Verbal: Oriented Alex Coma Scale Motor: Obeys Commands Gurley Coma Scale Total: 15 Speech: Normal - Psychological Associated symptoms: Normal affect, Normal mood - Skin Skin Temperature: Cool Skin Moisture: Dry Skin Color: Dusky Course - Re-evaluation Re-evalutation: 11/16/19 20:53 Patient has obvious ischemic fingers. He is unsure if he is on his oral anticoagulant. I have restarted this. I did obtain arterial Dopplers which do show flow through the radial and ulnar arteries although significantly decreased. Patient has been here approximate 6 hours there is no change of his hand exam. The duskiness is not progressing. No pain has developed. Patient states that his hand feels the same as when he arrived. I discussed the patient's case with the vascular surgeon at [facility]. He felt that the best plan for the patient was to be seen in his clinic in 1 to 2 days. I have relayed this to the patient and he assures me he can get a ride to the clinic. Patient is also been in A. fib with a slight fast rate which is been controlled with metoprolol. Patient is taking metoprolol orally at home. - Vital Signs Vital signs: Temp Pulse Resp BP Pulse Ox 98.2 F 32 H 142/86 H 81 L 11/16/19 15:40 11/16/19 20:01 11/16/19 20:01 11/16/19 17:00 - Laboratory Result Diagrams: 11/16/19 16:20 11/16/19 16:20 Laboratory results interpreted by me: 11/16/19 11/16/19 11/16/19 16:20 16:20 16:20 WBC 12.4 H RDW 16.6 H Lymph % (Auto) 6.5 L Absolute Neuts (auto) 10.3 H Seg Neutrophils % 83.0 H PT 16.1 H Glucose 133 H Total Bilirubin 2.7 H Urine Protein Urine Glucose (UA) Urine Ketones Urine Blood 11/16/19 17:35 WBC RDW Lymph % (Auto) Absolute Neuts (auto) Seg Neutrophils % PT Glucose Total Bilirubin Urine Protein >=500 H Urine Glucose (UA) 50 H Urine Ketones 20 H Urine Blood MODERATE H - Diagnostic Test Radiology reviewed: Image reviewed, Reports reviewed - EKG Interpretation by Me Rate: Tachycardia - 127 Rhythm: A.Fib, PVC's Dorsey/QRS: Left axis deviation Discharge - Discharge Clinical Impression: Peripheral vascular disease due to secondary diabetes, Ischemia of finger, Chronic a-fib, Atrial fibrillation with rapid ventricular response Condition: Fair Disposition: HOME, SELF-CARE Instructions: Peripheral Vascular Disease ([facility]) Additional Instructions: Dr. Abel (vascular surgeon) from [facility] will have his office call you tomorrow to arrange for an appointment. Please take your Eliquis, apixaban, twice a day as instructed. Please call your primary care doctor, Dr. Walker, first thing in the morning to arrange for a recheck tomorrow. Please make sure you discuss Eliquis and heart rate control medication with Dr. Walker tomorrow. If you have any problems or concerns before you are able to be seen by your primary doctor or the vascular surgeon please return to the emergency department for evaluation. If you have problems with your fingers becoming more blue, more painful, or any other concerns please return to the emergency department. Referrals: YESI WALKER MD [Primary Care Provider] - Follow up tomorrow
--- NOTE | 2019-11-17 09:16 | XCELERA REPORT ---
[address] [address] Upper Extremity Arterial Evaluation Name: CATHERINE LEROY II Age: 64 yrs Gender: Male : 1955 Patient Status: Emergency Patient Location: ER Study Date: 11/16/2019 05:51 PM Procedure: A duplex scan of the upper extremity arteries was performed on the left. Reason For Study: left fingers blue Ordering Physician: KELSIE BANDA Performed By: Karen Nunes Measurements and Calculations Right Left Prox SCLA PSV 75.8 cm/sec Prox SCLA EDV 7.3 cm/sec Left Side Arterial Evaluation Most unusual wall amount of irregularity and calcification in the Axillary and Brachial arteries. Normal velocity and triphasic waveforms noted from the Common Carotid artery to the Distal Subclavian. Multiphasic with low velocity from the Axillary to the Radial artery. Monophasic in the Ulnar artery. Critical Findings Discussed with Dr Banda. Interpretation Summary At least moderately severe compromise in the left upper extremity arteries, progressively from the Axillary. Ruvalcaba scale abnormalities , as noted. : KELSIE BANDA, Justen >
== END 2019-11-16 21:50 | disposition home or self-care (01) ==
LOC: ER 14:55
DX: E11.51 Type 2 diabetes mellitus with diabetic peripheral angiopathy without gangrene (principal); I99.8 Other disorder of circulatory system; R53.1 Weakness; R20.2 Paresthesia of skin
CPT/HCPCS: 93005; 96376; 99284; 96361; 96374; 36415; 85025; 85610; 80053; 81001; 84484; 93931 ×2; 93010; J3490; J7030

== ENCOUNTER 2019-11-17 23:42 | Emergency (ER) | payer OTHER ==
--- NOTE | 2019-11-18 00:41 | ER Document Report ---
ED General - General Chief Complaint: Fall Stated Complaint: WEAKNESS Time Seen by Provider: 11/18/19 00:41 Primary Care Provider: YESI WALKER MD [Primary Care Provider] - Follow up as needed Mode of Arrival: Medic Information source: Patient TRAVEL OUTSIDE OF THE [place] IN LAST 30 DAYS: No - HPI Onset: Other - over the last several weeks to 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 The patient apparently missed transferring from the toilet at home and he fell to the ground and was unable to get up. The patient therefore called EMS and they found the patient to have rapid AFib so they brought the patient to the ER. The patient says he has been taking his medications as prescribed but he cannot tell me what medications he is on. The patient says his blue fingers are unchanged from yesterday (he was seen in the ER for blue fingers and had ultrasounds showing fl ow of his radial and ulnar arteries although they were greatly diminished). The patient has an appointment with Vascular Surgery at [facility] today at 1pm which he plans on going to and he has transportation set up for it. - Related Data Allergies/Adverse Reactions: No Known Allergies Allergy (Verified 09/24/19 14:24) Past Medical History - General Information source: Patient - Social History Smoking Status: Former Smoker Frequency of alcohol use: None Drug Abuse: None Lives with: Alone Family History: Reviewed & Not Pertinent Patient has suicidal ideation: No Patient has homicidal ideation: No - Past Medical History Cardiac Medical History: Reports: Hx Atrial Fibrillation - told he had irregular hearteat, ?Afib? --on Plavix, Hx Congestive Heart Failure, Hx Hypercholesterolemia, Hx Hypertension, Hx Peripheral Vascular Disease Endocrine Medical History: Reports: Hx Diabetes Mellitus Type 1, Hx Diabetes Mellitus Type 2 Renal/ Medical History: Denies: Hx Peritoneal Dialysis Past Surgical History: Reports: Hx Orthopedic Surgery - left ankle Fx; amputation left big toe, Hx Vascular Surgery Review of Systems - Review of Systems Constitutional: No symptoms reported EENT: No symptoms reported Cardiovascular: Other - fasty heart rate Respiratory: No symptoms reported Gastrointestinal: No symptoms reported Genitourinary: No symptoms reported Male Genitourinary: No symptoms reported Musculoskeletal: Other - discoloration of fingers, dry gangrene of right toes Skin: Other - dry gangrene of right toes, discoloration of fingers on left Hematologic/Lymphatic: No symptoms reported Neurological/Psychological: No symptoms reported -: Yes All other systems reviewed and negative Physical Exam - Vital signs Vitals: Resp 28 H 11/18/19 00:01 - Notes Notes: GENERAL: Chronically ill-appearing, well-nourished and in no acute distress. HEAD: Atraumatic, normocephalic. EYES: Pupils equal round and reactive to light, extraocular movements intact, sclera anicteric, conjunctiva are normal. ENT: TMs normal, nares patent, oropharynx clear without exudates. Moist mucous membranes. NECK: Normal range of motion, supple without lymphadenopathy or JVD. LUNGS: Breath sounds clear to auscultation bilaterally and equal. No wheezes rales or rhonchi. HEART: Regular rate and rhythm without murmurs, rubs or gallops. ABDOMEN: Soft, nontender, normoactive bowel sounds. No guarding, no rebound. No masses appreciated. EXTREMITIES: Normal range of motion, left BKA, dry gangrene of right toes, chronic ischemia of fingers (left greater then right). All fingers affected on left but index finger is less affected. This is the same as the exam from yesterday according the the medical record and the patient. NEUROLOGICAL: Cranial nerves II through XII grossly intact. Normal speech, normal gait. PSYCH: Normal mood, normal affect. SKIN: Warm, Dry, normal turgor, no rashes or lesions noted. Course - Re-evaluation Re-evalutation: 11/18/19 02:26 The patient was apparently brought to the ER for evaluation of rapid AFib. The patient fell when transitioning at home and he could not get up so EMS was called. EMS found the patient to have blue fingers in his left hand and to be in rapid AFib. The patient was evaluated in this ER last night for the blue fingers on the left (his exam is unchanged today based on my exam and the previous ER D octors exam and he says his exam is unchanged from yesterday). The patient's heart rate was controlled with one dose of Metoprolol in the ER. Patient has a Vascular Surgery appointment later today at 1pm and he has transportation set up. Patient therefore DCed to home. - Vital Signs Vital signs: Temp Pulse Resp BP Pulse Ox 98.1 F 125 H 32 H 124/91 H 87 L 11/18/19 00:05 11/18/19 00:05 11/18/19 02:00 11/18/19 01:51 11/18/19 01:50 - Laboratory Result Diagrams: 11/18/19 00:45 11/18/19 00:45 Laboratory results interpreted by me: 11/18/19 11/18/19 11/18/19 00:45 00:45 00:45 WBC 14.9 H RDW 16.8 H Seg Neuts % (Manual) 87 H Lymphocytes % (Manual) 2 L Abs Neuts (Manual) 13.0 H Abs Lymphs (Manual) 0.3 L Abs Monocytes (Manual) 1.6 H BUN 21 H Glucose 168 H Total Bilirubin 2.6 H AST 103 H ALT 99 H NT-Pro-B Natriuret Pep 73209 H Albumin 3.4 L Discharge - Discharge Clinical Impression: Peripheral vascular disease Atrial fibrillation Qualifiers: Atrial fibrillation type: unspecified persistent Qualified Code(s): I48.19 - Other persistent atrial fibrillation; I48.1 - Persistent atrial fibrillation Condition: Stable Disposition: HOME, SELF-CARE Instructions: Peripheral Vascular Disease ([facility]), Atrial Fibrillation ([facility]) Additional Instructions: Go to your vascular surgery appointment later today. Do not miss this appointment. Tell the Vascular Surgeon you were seen in this ER last night and had ultrasounds showing flow through your radial and ulnar arteries but that there were diminished. Continue taking Eliquis and Aspirin as previously prescribed. Referrals: YESI WALKER MD [Primary Care Provider] - Follow up as needed
[2019-11-18] MEDS ORDERED: NORMAL SALINE 1000 ML 1,000 ML IV ONE (00:42)
[2019-11-18] MEDS ORDERED: METOPROLOL TARTRATE PF/INJ 5 MG/5 ML SDV IV ONE (01:09)
[2019-11-18 01:24] LABS: HEMATOCRIT 41.5 % (37.9-51.0); HEMOGLOBIN 13.8 g/dL (13.5-17.0); MEAN CORPUSCULAR HGB CONC 33.2 g/dL (32.0-36.0); MEAN CORPUSCULAR VOLUME 91 fl (80-97); PLATELET COUNT 244 10^3/uL (150-450); RED BLOOD COUNT 4.59 10^6/uL (4.35-5.55); RED CELL DISTRIBUTION WIDTH 16.8 % (11.5-14.0); WHITE BLOOD COUNT 14.9 10^3/uL (4.0-10.5)
[2019-11-18 01:35] LABS: ALBUMIN 3.4 g/dL (3.5-5.0); ALKALINE PHOSPHATASE 110 U/L (38-126); ANION GAP 10 (5-19); ASPARTATE AMINO TRANSFERASE 103 U/L (17-59); BILIRUBIN,DIRECT 0.3 mg/dL (0.0-0.4); BILIRUBIN,TOTAL 2.6 mg/dL (0.2-1.3); BLOOD UREA NITROGEN 21 mg/dL (7-20); CALCIUM 8.8 mg/dL (8.4-10.2); CARBON DIOXIDE 25 mmol/L (22-30); CHLORIDE 103 mmol/L (98-107); CREATINE KINASE 84 U/L (55-170); GLUCOSE 168 mg/dL (75-110); TOTAL PROTEIN 6.7 g/dL (6.3-8.2)
[2019-11-18 01:47] LABS: CREATINE KINASE MB 2.78 ng/mL (<4.55)
[2019-11-18 01:48] LABS: ABSOLUTE LYMPHOCYTES# (MANUAL) 0.3 10^3/uL (0.5-4.7); ABSOLUTE MONOCYTES # (MANUAL) 1.6 10^3/uL (0.1-1.4); BASOPHILS % (MANUAL) 0 % (0-2); EOSINOPHILS % (MANUAL) 0 % (0-6); LYMPHOCYTES % (MANUAL) 2 % (13-45); MONOCYTES % (MANUAL) 11 % (3-13); SEGMENTED NEUTROPHILS % (MAN) 87 % (42-78); TOTAL CELLS COUNTED 100
[2019-11-18 01:49] LABS: OVALOCYTES SLIGHT
[2019-11-18 01:50] LABS: PLATELET COMMENT ADEQUATE; TEAR DROP CELLS SLIGHT
[2019-11-18 01:52] LABS: TROPONIN I 0.075 ng/mL
[2019-11-18 03:14] VITALS: BP 136/106
--- NOTE | 2019-11-18 17:29 | EKG REPORT ---
SEVERITY:- ABNORMAL ECG - ATRIAL FIBRILLATION, V-RATE 91-160 MULTIPLE VENTRICULAR PREMATURE COMPLEXES REPOL ABNRM SUGGESTS ISCHEMIA, ANT-LAT LEADS : Confirmed by: Lacie Ball MD 18-Nov-2019 17:27:56
== END 2019-11-18 03:34 | disposition home or self-care (01) ==
LOC: ER 23:42
DX: I73.9 Peripheral vascular disease, unspecified (principal); I48.19 Other persistent atrial fibrillation; R53.1 Weakness; Z87.891 Personal history of nicotine dependence; I50.9 Heart failure, unspecified; I11.0 Hypertensive heart disease with heart failure; E11.9 Type 2 diabetes mellitus without complications
CPT/HCPCS: 93005; 99285; 96374; 36415; 82553; 82962; 82550; 85025; 80053; 84484; 83880; 93010; J3490